=== PATIENT | female | born 1970 | race African-American/Black ===

== ENCOUNTER 2019-08-12 20:44 | Inpatient (IN) | payer OTHER ==
[~2019-08-12] VITALS: Ht 165.1 cm; Wt 116.6 kg
[2019-08-12 20:59] VITALS: BP 139/87
[2019-08-12] MEDS ORDERED: LISINOPRIL2.5 MG PO ×2 (21:09)
[2019-08-12] MEDS ORDERED: METFORMIN HCL500 M3 PO (21:10)
[2019-08-12 22:05] LABS: ABSOLUTE NEUTROPHILS 5.6 thou/uL (1.4-8.2); BASOPHILS 0.2 % (0.0-2.0); HEMOGLOBIN 15.9 gm/dL (12.0-15.0); LYMPHOCYTES 18.3 % (24.0-44.0); MCH 28.8 pg (26.0-34.0); MCHC 33.7 g/dL (28.0-37.0); MCV 85.3 fL (80.0-100.0); MONOCYTES 11.6 % (1.0-8.0); PLATELET COUNT 211 thou/uL (150-400); POLYS 69.9 % (36.0-66.0); RBC 5.51 mil/uL (4.20-5.00); RDW 13.7 % (10.5-14.5)
[2019-08-12 22:12] LABS: BE(vivo) 3.1 mmol/L (-2 to +3); HCO3 25.8 mmol/L (22.0-26.0); PCO2 34.2 mmHg (35.0-45.0); pH 7.496 (7.360-7.450); sO2 86.9 % (92.0-98.0)
[2019-08-12 22:13] LABS: PO2 47.2 mmHg (80.0-100.0)
[2019-08-12 22:19] LABS: CALCIUM 8.2 mg/dL (8.5-10.1); POTASSIUM 4.1 mmol/L (3.5-5.1)
[2019-08-12 22:32] LABS: ALBUMIN 2.8 g/dL (3.4-5.0); DIRECT BILIRUBIN 0.5 mg/dL (<0.1-0.2); TOTAL BILIRUBIN 1.6 mg/dL (<0.1-1.0); TOTAL PROTEIN 7.8 g/dL (6.4-8.2)
[2019-08-12 23:15] LABS: BE(vivo) 3.4 mmol/L (-2 to +3); PO2 VENOUS 32.9 mmHg (35.0-45.0)
[2019-08-12 23:41] VITALS: BP 125/94
[2019-08-13] VITALS (7 sets, daily range): BP systolic 116–128; BP diastolic 70–84
--- NOTE | 2019-08-13 01:15 | NUR ---
Pt. arrived to the unit from the emergency room accompanied by staff. She is alert and oriented. She offers no c/o shortness of air. On 02 at 8 liters per nasal canula. Pt. does not like the oxygen in her nose and keeps pulling it away from her nose. Pt. educated on the importance of the oxygen. She is up with stand by assistance. Admission assessment and history is completed.
[2019-08-13 06:44] LABS: CHOLESTEROL 58 mg/dL (<200); HDL CHOLESTEROL 18 mg/dL (>40); LDL CHOLESTEROL 18 mg/dL (<100); TC:HDL 3.2 Ratio (Not establshd); TRIGLYCERIDE 113 mg/dL (<150); VLDL 23 mg/dL (<40)
[2019-08-13 06:48] LABS: SERUM ASSESSMENT Clear
--- NOTE | 2019-08-13 08:42 | NUR ---
ASSESSMENT: CM REVIEWED CHART AND SPOKE WITH ATTENDING WELL PATIENT. PT REPORTS SHE LIVES IN A HOUSE WITH HER MOTHER. SHE STATES ONE STEP TO ENTER AND 15 STEPS WITH HANDRAILS TO HER BEDROOM. PT REPORTS SHE IS FULLY INDEPENDENT WITH ADLS AND AMBULATION. PT DENIES HAVING ANY DME. PT DOES NOT HAVE A CPAP NOR OXYGEN AT HOME AND IS CURRENTLY ON 8L OXYGEN HERE. PT REPORTS NO HX OF HH OR POST ACUTE CARE. PT REPORTS NO RECENT TRAVEL. PT IS CURRENTLY IN ISOLATION AND BEING TESTED FOR COVID 19 WHICH IS STILL PENDING AT THIS TIME. PER REPORT PT HAS A FAMILY MEMBER THAT RECENTLY TESTED POSITIVE FOR COVID. CM WILL CONTINUE TO FOLLOW TO ASSIST NEEDED.
--- NOTE | 2019-08-13 10:08 | NUR ---
PATIENT STATED TO NURSE THIS AM THAT SHE DOES NOT LIKE PUTTING ON OXYGEN VIA NC. STATES IT IS TOO INCOVINIENT. EDUCATED ON NEED TO KEEP OXYGEN LEVEL ABOVE 90%. SHE HAS BEEN NOTED TO TAKE OFF HER OXYGEN AND OXYGEN LEVEL HAVE DROPPED BELOW 85%. ROXY ALSO REFUSED ACCU CHECK STATING SHE [place] O[facility]. EDUCATED ON NEED TO LET NURSE DO ACCUCHECK. WILL CONT WITH PLAN OF CARE.
--- NOTE | 2019-08-13 10:35 | NUR ---
Assess due to high BMI 45.7. Admit with fever, acute respiratory failure, and pending COVID 19 results. Brother has tested positive. Unable to interview pt, EMR reviewed. Hx diabetes, HTN. HDL are very low 18, glucose 230 and A1C is pending. Has started on carb controlled diet order. Unsure of recent intake trends or changes in weight. Low nutrition risk at this time, continue to follow up per protocol.
--- NOTE | 2019-08-13 21:15 | NUR ---
pt transported to [facility] beds at the [facility]. pt had all of their belongings taken to icu with them.
[2019-08-14] VITALS (21 sets, daily range): BP systolic 110–138; BP diastolic 71–95
[2019-08-14 05:17] LABS: ALBUMIN 2.3 g/dL (3.4-5.0); CALCIUM 8.2 mg/dL (8.5-10.1); CREATININE 0.8 mg/dL (0.6-1.0); POTASSIUM 4.1 mmol/L (3.5-5.1); TOTAL PROTEIN 6.8 g/dL (6.4-8.2)
[2019-08-14 05:49] LABS: HEMATOCRIT 41.9 % (37.0-47.0); MCH 28.6 pg (26.0-34.0); MCV 86.7 fL (80.0-100.0); RBC 4.83 mil/uL (4.20-5.00); RDW 13.6 % (10.5-14.5); WBC 7.3 thou/uL (4.0-11.0)
[2019-08-14 06:10] LABS: HEMOGLOBIN 13.8 gm/dL (12.0-15.0)
--- NOTE | 2019-08-14 06:50 | NUR ---
[facility] WAS UNABLE TO SEE PT UNTIL APPROX 2140 DUE TO INITIAL ABSCENCE OF N95 MASK. ASSESSMENTS AND MEDS GIVEN ARE DOCUMENTED. PT RESTED WELL FOR MOST OF THE NOC. RR RANGED FROM 26-30S BUT MOSTLY STAYED IN THE HIGH 20s FOR MOST OF THE NOC. PT HAD A FEVER OF 100.3 AROUND 0123AM, FEVER BROKE BY ITSLEF, TEMP NOW 35.8. PT IS STABLE. PT HAD AN UNEVENTFUL NOC. PT IS SLOWLY PROGRESSING TOWARDS POC GOALS.
--- NOTE | 2019-08-14 07:56 | EKG ---
[facility] [place] [address] ELECTROCARDIOGRAM REPORT Name: TOM PITTS Room #: 237-P ADM IN M.R.#: [id number] Admission: 08/12/19 Attend Phys: Kory Larios MD Discharge: Date of : 70 Report #: [id number] THIS REPORT FOR: cc: SANA - Bobbi family physician/PCP SANA - Bobbi family physician/PCP Daquan Pantoja MD [facility] THIS REPORT FOR: //name// [facility] ED Test Date: 2019-08-12 Test Time: 21:45:43 Pat Name: TOM PITTS Department: Room: [facility] Gender: F Dance Master: GRAY : 1970 Requested By: Aaron De La Cruz Order Number: [id number] MD: Daquan Pantoja Measurements Intervals [place] Rate: 106 P: 38 TN: 142 QRS: 3 QRSD: 104 T: 25 QT: 353 QTc: 469 Interpretive Statements Sinus tachycardia Otherwise normal tracing No previous ECG available for comparison Electronically Signed On 08-14-2019 7:54:55 CDT by Daquan Pantoja [email or web address] <ELECTRONICALLY SIGNED> By: Daquan Pantoja MD, FAC 08/14/19 0754 [id number] Daquan Pantoja MD, [facility] /EPI
--- NOTE | 2019-08-14 12:16 | NUR ---
ON-GOING ASSESSMENT: CM REVIEWED CHART AND SPOKE WITH ATTENDING. PT REMAINS IN ISOLATION DUE TO POSITIVE COVID 19. PT IS CURRENTLY ON THE BIPAP AND IF SHE DOES NOT IMPROVE MAY NEED POSSIBLE INTUBATION. PT REMAINS ON IV ANBX. CM WILL CONTINUE TO FOLLOW TO ASSIST NEEDED.
[2019-08-14 15:15] LABS: D-DIMER 1.4 ug/mLFEU (0.19-0.50); FIBRINOGEN 523.9 mg/dL (210-360); INR 1.1; PROTIME 10.9 Seconds (9.3-11.4)
--- NOTE | 2019-08-14 16:30 | NUR ---
Estrada catheter placed with immediate return of geraldine urine. Sinus rhythm. Remains on BIPAP. Continue to monitor pulmonary status and reserve. May need intubation if increasing fatigue and work of breathing.
--- NOTE | 2019-08-14 19:00 | NUR ---
Report given to oncoming RN. Continues support with CPAP. Maintaining adequate O2 sat. Status report given to pt's daughter cayetano today. Continue to work toward pt goals.
[2019-08-14 19:57] LABS: URINE BILIRUBIN NEGATIVE (Negative); URINE BLOOD TRACE (Negative); URINE CLARITY CLEAR; URINE COLOR AMBER; URINE GLUCOSE-RANDOM* TRACE (Negative); URINE KETONES NEGATIVE (Negative); URINE LEUKOCYTES-REFLEX NEGATIVE (Negative); URINE NITRITE-REFLEX NEGATIVE (Negative); URINE PROTEIN (DIPSTICK) 2+ (Negative); URINE SPECIFIC GRAVITY 1.015 (1.005-1.035); URINE UROBILINOGEN >= 8.0 E.U./dl (0.2-1.0)
[2019-08-14 20:07] LABS: SQUAMOUS 0-3 Few /LPF (0-3)
[2019-08-14 20:08] LABS: BACTERIA-REFLEX 1-9 Few /HPF (None Seen); CASTS None Seen /LPF (None Seen); CRYSTALS None Seen /LPF (None Seen); MUCUS 4-6 Moderate strn/LPF (None Seen); URINE RBC 0-2 Rare /HPF (0-2); URINE WBC-REFLEX 0-5 Rare /HPF (0-5)
--- NOTE | 2019-08-14 21:24 | NUR ---
PATIENT RESTING IN NO ACUTE DISTRESS.REMAINS A/OX4.VSS.ON BIPAP PER ORDERS.DR TUBBS,INFECTIOUS DOCTOR CALLED REGARDING PLAN OF CARE TO INTIATE PATIENT ON CONVALESCENT PLASMA THERAPY.PATIENT INFORMED OF THE POC,EDUCATED ON THE RATIONALE OF THE THERAPY AND INFORMED THAT IT IS NOT A CURE BUT AID IN HELPING PATIENT TO FIGHT THE VIRUS.PATIENT IN AGREEMENT TO PARTICIPATE,DR TUBBS WAS NOTIFIED OF THE PATIENT DECISION TO PROCEED WITH THE THERAPY.NO CONCERNS VOICED BY THE PATIENT.
[2019-08-15] VITALS (43 sets, daily range): BP systolic 113–144; BP diastolic 68–91
[2019-08-15 01:07] LABS: HIV ANTIBODY Non Reactive (Non Reactive)
[2019-08-15 02:07] LABS: HEP B SURFACE Ab(ANTI-HBS Non Reactive (()); HEPATITIS B SURFACE AG Negative (Negative); HEPATITIS C VIRUS AB <0.1 (0.0-0.9)
[2019-08-15 05:25] LABS: ABSOLUTE NEUTROPHILS 4.7 thou/uL (1.4-8.2); BASOPHILS 0.4 % (0.0-2.0); HEMATOCRIT 40.4 % (37.0-47.0); HEMOGLOBIN 13.2 gm/dL (12.0-15.0); LYMPHOCYTES 22.9 % (24.0-44.0); MCH 28.4 pg (26.0-34.0); MCHC 32.6 g/dL (28.0-37.0); MCV 87.2 fL (80.0-100.0); MONOCYTES 7.9 % (1.0-8.0); PLATELET COUNT 244 thou/uL (150-400); POLYS 67.8 % (36.0-66.0); RBC 4.63 mil/uL (4.20-5.00); RDW 14.1 % (10.5-14.5); WBC 6.9 thou/uL (4.0-11.0)
[2019-08-15 05:51] LABS: FIBRINOGEN 523.9 mg/dL (210-360); INR 1.1; PROTIME 10.9 Seconds (9.3-11.4)
[2019-08-15 06:03] LABS: ALBUMIN 2.1 g/dL (3.4-5.0); CREATININE 0.8 mg/dL (0.6-1.0); TOTAL BILIRUBIN 1.3 mg/dL (<0.1-1.0); TOTAL PROTEIN 6.6 g/dL (6.4-8.2)
--- NOTE | 2019-08-15 06:25 | NUR ---
ASSESSMENT DOCUMENTED.PT BEEN RESTING IN NO ACUTE DISTRESS.REMAINS ON BIPAP.A/OX4.ASSIST WITH BED TURNING AND REPOSITIONING.[place] NOTED.PT HAVING LOOSE COUGH WITH PHELGM,USES TISSUES TO CLEAR.DESAT TO 70S W/O BIPAP ON QUICKLY BUT THEN RECOVER FASTER ON BIPAP.PEDRO LUIS SOLOMON.ADEQUATE UO.UPDATED ON THE PLAN OF CONVASCELENT PLASMA THERAPY TODAY,STILL INAGREEMENT.PT DENIES PAIN OR ANY DISTRESS AT THIS TIME.WILL CONT TO MONITOR PER POC.
--- NOTE | 2019-08-15 08:45 | EKG ---
[facility] [place] [address] ELECTROCARDIOGRAM REPORT Name: TOM PITTS Room #: 237- ADM IN M.R.#: [id number] Admission: 08/12/19 Attend Phys: Kory Larios MD Discharge: Date of : 70 Report #: [id number] THIS REPORT FOR: cc: SANA - Bobbi family physician/PCP SANA - No family physician/PCP Daquan Pantoja MD [facility] THIS REPORT FOR: //name// [facility] Test Date: 2019-08-15 Test Time: 07:27:33 Pat Name: TOM PITTS Department: Room: [facility] Gender: F Mixer Operator: ERON : 1970 Requested By: Kory Larios Order Number: [id number] MD: Daquan Pantoja Measurements Intervals [place] Rate: 83 P: 36 TX: 161 QRS: -2 QRSD: 106 T: 21 QT: 412 QTc: 485 Interpretive Statements Sinus rhythm Normal tracing Compared to ECG 08/12/2019 21:45:43 Sinus tachycardia no longer present Electronically Signed On 08-15-2019 8:43:36 CDT by Daquan Pantoja [email or web address] <ELECTRONICALLY SIGNED> By: Daquan Pantoja MD, FAC 08/15/19 0843 0727 6 Daquan Pantoja MD, [facility] /EPI
--- NOTE | 2019-08-15 15:33 | NUR ---
SW reviewed chart and spoke with attending physician. Pt remains on bipap and may start plasma transfusion. No weekend discharge planned. ANA is following to assist as needed with discharge planning.
--- NOTE | 2019-08-15 19:24 | NUR ---
CONTINUES ON BIPAP AT .60 O2. CONVALESANT PLAMA INFUSION RECIEVED. NO COMPLAINTS OF PAIN. VSS.
[2019-08-16] VITALS (87 sets, daily range): BP systolic 113–211; BP diastolic 69–118
--- NOTE | 2019-08-16 04:04 | NUR ---
PT HAD A DECENT UNEVENTFUL NOC. PT IS STABLE. SATS IN THE LOW 90s. SLOWLY PROGRESSING TOWARDS POC.
[2019-08-16 06:32] LABS: ABSOLUTE NEUTROPHILS 5.3 thou/uL (1.4-8.2); BASOPHILS 0.1 % (0.0-2.0); EOSINOPHILS 1.6 % (0.0-3.0); HEMATOCRIT 38.6 % (37.0-47.0); HEMOGLOBIN 12.9 gm/dL (12.0-15.0); LYMPHOCYTES 16.5 % (24.0-44.0); MCH 28.5 pg (26.0-34.0); MCHC 33.4 g/dL (28.0-37.0); MCV 85.4 fL (80.0-100.0); PLATELET COUNT 279 thou/uL (150-400); POLYS 71.8 % (36.0-66.0); RBC 4.51 mil/uL (4.20-5.00); RDW 13.7 % (10.5-14.5); WBC 7.3 thou/uL (4.0-11.0)
[2019-08-16 06:44] LABS: INR 1.1; PROTIME 11.4 Seconds (9.3-11.4)
[2019-08-16 06:49] LABS: FIBRINOGEN 580.5 mg/dL (210-360)
[2019-08-16 07:06] LABS: ALBUMIN 2.2 g/dL (3.4-5.0); CALCIUM 8.2 mg/dL (8.5-10.1); CREATININE 0.7 mg/dL (0.6-1.0); POTASSIUM 3.8 mmol/L (3.5-5.1); TOTAL PROTEIN 6.8 g/dL (6.4-8.2)
[2019-08-16 07:10] LABS: TOTAL BILIRUBIN 1.2 mg/dL (<0.1-1.0)
--- NOTE | 2019-08-16 15:28 | NUR ---
ASSUMED CARE OF PT AT SHIFT CHANGE, PT A&OX4, NORMALLY UP AD FORREST, HIGH RESPIRATION RATE, ON BIPAP W/RT CARES. SEE SEPARATE INTERVENTIONS FOR ASSESSMENTS. B/P RAISES WHEN SITTING AT THE SIDE OF THE BED, HAD QUESTIONS ABOUT BIPAP AND WHAT IT DOES FOR HER, WANTS TO GET UP AND WALK AROUND, STATES SHE IS VERY INDEPENDENT NORMALLY AND WANTS TO KNOW WHAT SHE CAN DO TO GET BETTER. RT ANSWERED SOME OF HER QUESTIONS. PRINTED INFO SHEETS WELL. REFUSED LUNCH BG STATED SHE ISN'T EATING; EXPLANATION GIVEN HOW BGS CAN RAISE WITH ILLNESS. ENCOURAGED HER TO CALL FOR ANY NEEDS AND SHE DOES
--- NOTE | 2019-08-16 18:25 | NUR ---
PT WANTED TO EAT, PHYSICIAN OKAYED, THEN DISCOVERED ALTHOUGH PT IS ALLOWED SIPS OF LIQUIDS/MEDS, SHE CANNOT HAVE A FULL LIQUID DIET. CANCELLED. THEY BROUGHT DINNER. TRIED TO CANCEL AND IT STATES UNABLE TO DO SO. CALLED DIETARY. PT SPENT MOST OF THE DAY AWAKE, ABOUT TWO HOURS UP SITTING AT THE SIDE OF THE BED, THEN FROM ABOUT 1645 ON SHE HAS NAPPED. FAMILY CALLED REPEATEDLY TO CHECK ON HER. WILL GIVE REPORT TO KEYBOARD INSTRUMENT REPAIRER.
[2019-08-17] VITALS (28 sets, daily range): BP systolic 120–191; BP diastolic 72–102
[2019-08-17 04:10] LABS: HEMATOCRIT 39.3 % (37.0-47.0); HEMOGLOBIN 13.2 gm/dL (12.0-15.0); MCH 28.7 pg (26.0-34.0); MCHC 33.5 g/dL (28.0-37.0); MCV 85.7 fL (80.0-100.0); RBC 4.58 mil/uL (4.20-5.00); RDW 13.5 % (10.5-14.5)
[2019-08-17 04:13] LABS: CALCIUM 8.3 mg/dL (8.5-10.1); CREATININE 0.7 mg/dL (0.6-1.0); POTASSIUM 3.9 mmol/L (3.5-5.1)
--- NOTE | 2019-08-17 06:34 | NUR ---
Pt tolerating bipap at 16/8, 60%; O2 sat remains >90, but pt is still tachypnic with respirations 30-40. frequent productive cough, thick yellow sputum. Pt seems less anxious this morning than she did at beginning of shift. Remains NPO except for sips of clear liquids with meds.
--- NOTE | 2019-08-17 12:29 | NUR ---
CONSULTED TO PLACE A PICC FOR A PATIENT NEEDING ADDITIONAL ACCESS. COVID +. ORDER AND CONSENT NOTED. THE PROCEDURE WELL BENIFITS AND RISKS DISCUSSED WITH THE PATIENT AND SHE VERBALIZED UNDERSTANDING. THE RIGHT UPPER ARM CEPHALIC WAS WIDLEY PATENT A #5F TRIPLE LUMEN POWER PICC WAS PLACED AFTER A BEDSIDE TIMEOUT WAS COMPLETED. LINE WAS TRIMMED TO 46CM AND ADVANCED WITH 4CM EXTERNAL. A STAT CHEST XRAY CONFIRMED LINE IN PROPER POSITION AND RELEASED FOR USE
--- NOTE | 2019-08-17 18:41 | NUR ---
SPOKE WITH PT'S DAUGHTER JENY ON THE PHONE AND GAVE HER AN UPDATE ON PT.
--- NOTE | 2019-08-17 18:41 | NUR ---
PT DANGLED ON SIDE OF BED FOR 30 MINUTES WITH RN AT BEDSIDE WITH PT. PT KEEP BIPAP ON MOST OF TIME HOWEVER REMOVED IT TO BLOW HER NOSE AND TAKE A SIP OF WATER WITH HER MEDICINE. PT BECAME VERY SOB ONCE MASK WAS REMOVED. PT AGREED TO PLACE MASK BACK ON FACE. PT HELPED BACK INTO BED AND RECOVERED TO A PULSE OX OF 94% ON BIPAP.
[2019-08-18] VITALS (28 sets, daily range): BP systolic 128–179; BP diastolic 80–100
[2019-08-18 05:10] LABS: HEMOGLOBIN 12.8 gm/dL (12.0-15.0); MCH 28.3 pg (26.0-34.0); MCHC 32.9 g/dL (28.0-37.0); MCV 86.1 fL (80.0-100.0); RBC 4.52 mil/uL (4.20-5.00); RDW 13.5 % (10.5-14.5)
[2019-08-18 05:21] LABS: CALCIUM 8.3 mg/dL (8.5-10.1); CREATININE 0.7 mg/dL (0.6-1.0); POTASSIUM 3.5 mmol/L (3.5-5.1)
--- NOTE | 2019-08-18 06:00 | NUR ---
PT AWAKE AND ALERT REMAINS ON BIPAP. INCREASED TO 85% FIO2 LUNGS DIMINISHED. 1200 CC UO THIS SHIFT. CONT TO REFUSE TO BE TURNED ORAL CARE OR BE0 BATHED. ISOLATION FOR COVIB 19. WILL CONT TO MONITOR
[2019-08-18 09:09] LABS: BE(vivo) 0.1 mmol/L (-2 to +3); PCO2 36.5 mmHg (35.0-45.0); PO2 76.1 mmHg (80.0-100.0); pH 7.435 (7.360-7.450); sO2 95.7 % (92.0-98.0)
--- NOTE | 2019-08-18 09:30 | NUR ---
COVID 19+, tranferred to ICU.
--- NOTE | 2019-08-18 11:23 | NUR ---
PT REFUSING LOVENOX AND TURNS. SPOKE WITH AUTHORIZED CONTACT WHO CLAIMS TO BE AN ANESTHESIOLOGIST; UPDATED AND ANSWERED ALL QUESTIONS. SHE WOULD LIKE TO SPEAK WITH THE A PHYSICIAN TO DISCUSS THE PT'S CASE.
[2019-08-19] VITALS (45 sets, daily range): BP systolic 134–234; BP diastolic 78–141
[2019-08-19 05:38] LABS: INR 1.1; PROTIME 11.7 Seconds (9.3-11.4)
[2019-08-19 05:43] LABS: ABSOLUTE NEUTROPHILS 4.9 thou/uL (1.4-8.2); BASOPHILS 0.2 % (0.0-2.0); FIBRINOGEN 650.6 mg/dL (210-360); HEMATOCRIT 39.1 % (37.0-47.0); HEMOGLOBIN 13.2 gm/dL (12.0-15.0); LYMPHOCYTES 13.6 % (24.0-44.0); MCH 28.9 pg (26.0-34.0); MCHC 33.7 g/dL (28.0-37.0); MCV 85.8 fL (80.0-100.0); MONOCYTES 2.9 % (1.0-8.0); PLATELET COUNT 387 thou/uL (150-400); POLYS 83.3 % (36.0-66.0); RBC 4.56 mil/uL (4.20-5.00); RDW 13.4 % (10.5-14.5); WBC 5.9 thou/uL (4.0-11.0)
[2019-08-19 06:04] LABS: ALBUMIN 2.1 g/dL (3.4-5.0); CALCIUM 8.8 mg/dL (8.5-10.1); CREATININE 0.7 mg/dL (0.6-1.0); POTASSIUM 4.3 mmol/L (3.5-5.1); TOTAL BILIRUBIN 0.6 mg/dL (<0.1-1.0); TOTAL PROTEIN 7.3 g/dL (6.4-8.2)
--- NOTE | 2019-08-19 06:44 | NUR ---
PT A&O X4 ABLE TO MAKE NEEDS KNOWN. DENIES PAIN. PT HAS BEEN COOPERATIVE WITH CARE OVERNIGHT. CONTINUES ON BIPAP DESATS OCCASIONAL DESATS TO UPPER 80s. PPN @40CC/HR. ACCU CHECKS Q6H BS ELEVATED. PT HAS A CLOUD DRAINS W/O DIFFICULTIES. STATED SHE REPOSITIONS HERSELF SLIDES DOWN THE BED OFFERED TO BE PULLED UP OVERNIGHT BUT SHE DECLINED.
--- NOTE | 2019-08-19 09:00 | NUR ---
DR ORTIZ AND MYSELF WERE IN ROOM THIS MORNING AND HE ASKED PATIENT TO CLARIFY CODE STATUS...SHE HAD DECLINED INTUBATION THE PREVIOUS DAY BUT STATED SHE WOULD NOW CONSENT TO INTUBATION IF NEEDED FOR A SHORT TERM SOLUTION TO EASE HER BREATHING..
--- NOTE | 2019-08-19 10:48 | NUR ---
PATIENT EXPRESSED HER WISHES THAT SHE WILL ALLOW INTUBATION IF IT IS FOR A SHORT PERIOD OF TIME WITH DR ORTIZ PRESENT. WILL MONITOR..
--- NOTE | 2019-08-19 14:30 | NUR ---
PT STATES SHE IS READY TO BE INTUBATED NOW...SHE DOES NOT HAVE LABORED BREATHING...HER RESP RATE IS AROUND 24...SHE APPEARS COMFORTABLE...DR CARPENTER WAS NOTIFIED AND LONG SHE IS STABLE THE PLANS IS TO INTUBATE HER TOMORROW...IF HER STATUS CHANGES SHE MAY BE INTUBATED TONIGHT...WILL MONITOR
--- NOTE | 2019-08-19 15:58 | NUR ---
SW reviewed chart and spoke with nursing and attending physician. Pt remains on bipap and has agreed to be intubated if needed. SW is following to assist as needed with discharge planning.
[2019-08-20] VITALS (19 sets, daily range): BP systolic 97–158; BP diastolic 52–98
--- NOTE | 2019-08-20 07:39 | NUR ---
Assessment and intervention document. Pt able to make need known. Pt complains of hunger would like to eat. Saturating in upper 90 on Bipap. No labor breathing respiration in the 20s. Patient does not tolerate removal of Bipap. All other vitals are WNL. Patient is stable but is not progressing toward goals. Will continue to monitor.
[2019-08-20 07:45] LABS: BE(vivo) 0.7 mmol/L (-2 to +3); HCO3 24.8 mmol/L (22.0-26.0); PCO2 38.1 mmHg (35.0-45.0); PO2 73.5 mmHg (80.0-100.0); pH 7.431 (7.360-7.450); sO2 95.2 % (92.0-98.0)
[2019-08-20 11:09] LABS: BE(vivo) -2.8 mmol/L (-2 to +3); HCO3 23.5 mmol/L (22.0-26.0); PCO2 46.5 mmHg (35.0-45.0); PO2 120.1 mmHg (80.0-100.0); pH 7.322 (7.360-7.450); sO2 98.1 % (92.0-98.0)
--- NOTE | 2019-08-20 16:36 | NUR ---
PATIENT WAS INTUBATED THIS AM BY HER CONSENT. PROPOFOL AND OTHER SEDATIVES INITIATED. SHE WAS AWAKE FOR THE FIRST COUPLE OF HOURS BUT IS NOW SLEEPING. SHE DOES OCCASIONALLY WAKE UP AND ATTEPT TO MOVE HER HANDS. RESTRAINTS IN PLACE. ORAL CARE PROVIDED. LOW SUCTION APPLIED TO OG TUBE. WILL CONT WITH PLAN OF CARE.
--- NOTE | 2019-08-20 19:17 | NUR ---
1000: SPOKE WITH DTR, ESSENCE. INFORMED OF INTUBATION, MEDS AND RESTRAINTS.
[2019-08-21] VITALS (25 sets, daily range): BP systolic 105–181; BP diastolic 53–104
--- NOTE | 2019-08-21 03:12 | NUR ---
COVID PT SEDATION VACATION AT 7; LASTED 4MINS. PT WITHDRAWS R HAND TO PAIN; UNABLE TO FOLLOW COMMANDS, +VE COUGH AND GAG REFLEX. PT ON PROPOFOL, VERSED, & DILAUDID. PT'S SSI WAS CHANGED TO MODERATE DOSE PER PRT. BATH GIVEN THIS SHIFT. PT IS STABLE. RESTING WELL. U/O>40ML/HR. FIO2 TITRATED DOWN TO 95% AT THIS TIME, PT IS SLOWLY PROGRESSING TOWARDS POC GOALS.
[2019-08-21 06:08] LABS: ABSOLUTE NEUTROPHILS 6.9 thou/uL (1.4-8.2); BASOPHILS 1.1 % (0.0-2.0); HEMOGLOBIN 12.8 gm/dL (12.0-15.0); LYMPHOCYTES 11.2 % (24.0-44.0); MCH 28.4 pg (26.0-34.0); MCHC 32.8 g/dL (28.0-37.0); MCV 86.5 fL (80.0-100.0); MONOCYTES 7.3 % (1.0-8.0); PLATELET COUNT 389 thou/uL (150-400); POLYS 80.4 % (36.0-66.0); RBC 4.51 mil/uL (4.20-5.00); RDW 13.6 % (10.5-14.5); WBC 8.5 thou/uL (4.0-11.0)
[2019-08-21 06:23] LABS: ALBUMIN 2.3 g/dL (3.4-5.0); CALCIUM 8.7 mg/dL (8.5-10.1); CREATININE 0.7 mg/dL (0.6-1.0); POTASSIUM 4.3 mmol/L (3.5-5.1); TOTAL BILIRUBIN 0.7 mg/dL (<0.1-1.0)
[2019-08-21 07:02] LABS: FIBRINOGEN 434.1 mg/dL (210-360); INR 1.1; PROTIME 11.4 Seconds (9.3-11.4)
--- NOTE | 2019-08-21 08:50 | NUR ---
Recommend discontinue PPN. Start enteral nutrition of Vital AF 1.2 at goal 30ml/hr while on high dose of propofol. Rec water flush of 240 ml every 6hr and add 1 packet beneprotein in each water flush.
--- NOTE | 2019-08-21 09:48 | NUR ---
ASSUMED CARE AT 0700, ASSESSMENT AND VITAL SIGNS COMPLETED PER ICU PROTOCOL. DR. CARPENTER ROUNDED THIS AM, NEW ORDERS AND PLAN OF CARE DISCUSSED. DR. ORTIZ ROUNDED THIS AM, NEW ORDERS RECEIVED.
--- NOTE | 2019-08-21 12:31 | NUR ---
SW reviewed chart and spoke with attending physician. Pt remains in Enhanced Isolation. Pt remains intubated at this time. SW spoke with pt's dtr, Esseynce to provide update and provide support. Pt is slowly progressing with goals of extubating and starting therapy services when pt is able to participate. SW is following to assist as needed with discharge planning.
[2019-08-22] VITALS (19 sets, daily range): BP systolic 104–169; BP diastolic 58–94
[2019-08-22 03:04] LABS: HEMOGLOBIN 11.8 gm/dL (12.0-15.0); MCH 28.2 pg (26.0-34.0); MCHC 32.7 g/dL (28.0-37.0); MCV 86.3 fL (80.0-100.0); RBC 4.17 mil/uL (4.20-5.00); RDW 13.5 % (10.5-14.5); WBC 8.1 thou/uL (4.0-11.0)
[2019-08-22 03:51] LABS: CALCIUM 7.3 mg/dL (8.5-10.1); CREATININE 0.6 mg/dL (0.6-1.0); POTASSIUM 3.6 mmol/L (3.5-5.1)
[2019-08-22 04:50] LABS: BE(vivo) -1.6 mmol/L (-2 to +3); HCO3 22.7 mmol/L (22.0-26.0); PCO2 36.9 mmHg (35.0-45.0); PO2 99.4 mmHg (80.0-100.0); pH 7.407 (7.360-7.450); sO2 97.6 % (92.0-98.0)
--- NOTE | 2019-08-22 09:00 | NUR ---
Assumed care at 0700. Sedation vacation performed at 0833 and ended at 0850. PT raised her eyebrows to voice but did not follow commands. She remained calm during the sedation vacation and vital signs remained stable. PT was placed back on propofol gtt however it was titrated down to 30 mcs/kg/hr. Dilaudid gtt was titrated to 1 ml/h. The versed was resumed at 1 mg/h. High fall risk precautions are in place. RN will continue to monitor.
--- NOTE | 2019-08-22 14:00 | NUR ---
Spoke with PT's daughter and provided her with a PT update. Daughter asked if she could send balloons to her mother. RN asked the Darian RN extension service supervisor who stated that would most likely not be okay considering the infection potential, but to ask Kecia Pruitt for clarification. RN attempted to call Aurelia Pruitt but was unable to reach her. RN told the daughter that the balloons would not be advised but a card would be okay to send. PT verbalized understanding and stated she plans on bringing the card on Sunday, August 23 to the emergency entrance. RN verbalized understanding and reminded daughter to please call staff on Sunday ahead of time so they know when to expect her arrival. RN will continue to monitor.
--- NOTE | 2019-08-22 14:51 | NUR ---
SW reviewed chart and spoke with attending physician. Pt remains on the ventilator and in Enhanced Isolation. Pt COVID-19 positive. Tube feeding to be started. No weekend discharge planned. SW is following to assist as needed with discharge planning.
--- NOTE | 2019-08-22 16:41 | NUR ---
PT was placed in the prone position at 1630 per provider's orders. PT appeared to tolerate the turn well. High fall risk precautions are in place. RN will continue to monitor.
[2019-08-23] VITALS (18 sets, daily range): BP systolic 101–131; BP diastolic 60–86
[2019-08-23 05:12] LABS: HCO3 25.8 mmol/L (22.0-26.0); PCO2 37.5 mmHg (35.0-45.0); pH 7.456 (7.360-7.450); sO2 96.4 % (92.0-98.0)
[2019-08-23 05:27] LABS: ABSOLUTE NEUTROPHILS 5.3 thou/uL (1.4-8.2); EOSINOPHILS 0.1 % (0.0-3.0); HEMATOCRIT 37.2 % (37.0-47.0); HEMOGLOBIN 12.3 gm/dL (12.0-15.0); LYMPHOCYTES 28.3 % (24.0-44.0); MCH 28.5 pg (26.0-34.0); MCHC 33.1 g/dL (28.0-37.0); MONOCYTES 9.3 % (1.0-8.0); PLATELET COUNT 333 thou/uL (150-400); POLYS 61.3 % (36.0-66.0); RBC 4.32 mil/uL (4.20-5.00); RDW 13.7 % (10.5-14.5); WBC 8.6 thou/uL (4.0-11.0)
[2019-08-23 05:45] LABS: ALBUMIN 2.3 g/dL (3.4-5.0); CALCIUM 8.1 mg/dL (8.5-10.1); CREATININE 0.5 mg/dL (0.6-1.0); POTASSIUM 3.7 mmol/L (3.5-5.1); TOTAL BILIRUBIN 0.5 mg/dL (<0.1-1.0); TOTAL PROTEIN 6.2 g/dL (6.4-8.2)
--- NOTE | 2019-08-23 07:15 | NUR ---
PT ON A VERSED DRIP, KEYONA RODGERS (CEMENTER HELPER) TELLS ME THAT SHE JUST HUNG A VERSED DRIP AND THE DRIP WAS ALREADY AT THE BEDSIDE AT THE START OF HER SHIFT. I ASKED FOR THE BLUE SHEET, THIS WAS NOT FOUND ANYWHERE IN THE DRAWS OR THE CHART OF THE PT. I CALLED PHARMACY TO ASK WHAT TIME THIS VERSED GTT WAS ISSUED, JOSH PHARM D TOLD ME THAT IT WAS MADE 08/21/19, TWO DAYS AGO. I ASKED FOR ANOTHER VERSED BAG SINCE THIS BAG WAS ALREADY BASED ON THE 24 HOUR EXPIRATION DATES ON THESE DRIPS, I ALSO ASKED FOR ANOTHER BLUE SHEET SINCE WE COULDNT FIND THE BLUE SHEET FOR THE BAG. A NEW BAG WAS SENT WITH ITS BLUE SHEET AND A PLAIN UNCOMPLETED BLUE SHEET WAS SENT FOR THE BAG. JOSH PHARM-D AWARE ABOUT THIS INCIDENT, NOTHING REQUIRED OF ME AT THIS TIME.
--- NOTE | 2019-08-23 08:01 | NUR ---
ASSESSMENTS CHARTED, MEDS CHARTED GIVEN. PATIENT WAS IN PRONE POSITION AT START OF SHIFT. WAS TURNED AT 0300 WHEN STAFF WAS AVAILABLE TO TURN HER SAFELY WITHOUT EXTUBATING HER. TUBE FEED WAS STARTED AGAIN. Q6 ACCU CHECKS COVERED CHARTED. BED BATH WAS GIVEN . PATIENT IS CURRENTLY IN SOFT WRIST RESTRAINTS TO PREVENT EXTUBATION. PATIENT WAS LIGHTLY SADATED DURING SHIFT. FALL PRECAUTIONS IN PLACE DURING SHIFT.
--- NOTE | 2019-08-23 12:54 | NUR ---
ASSUMED CARE @ 0700 08/23/19, PT ASSESSMENTS AND VSS COMPLETE PER ICU PROTOCOL. SEDATION VACATION @3117-1707, PT ABLE TO FOLLOW SIMPLE COMMANDS, R HAND WEAKER THAN L HAND BUT BOTH WEAK, EQUAL STRENGTH BLE. PROPOFOL, VERSED AND HYDROMORPHONE GTT FOR VENT MANAGEMENT. PT ON THE VENT, 50% FIO2, PEEP 8, SATS 93-95%, EQUAL CHEST EXPANSION. OG IN PLACE TO TUBE FEEDS, LOW RESIDUALS (20-40), H20 FLUSHES GIVEN BENE PROTEIN ORDERED. CLOUD TO DEPENDENT DRAINAGE, ADEQUATE OUTPUT NOTED GREATER THAN 30ML/HR. DR CARPENTER, DR MICHELLE AND DR ORTIZ HERE DURING SHIFT TO ROUND, NO NEW ORDERS RECIEVED AT THE TIMES. DAUGHTER YOMAIRA CALLED, CODE VERIFIED AND UPDATED ABOUT PT'S CARE.
--- NOTE | 2019-08-23 21:02 | NUR ---
Accepted care of patient, she is currently in a prone position, so her physical assessment is difficult to complete at this time. She is restrained, sedated and intubated, VSS, her tube feed is off due to her position. The bed is in a reverse trendelenburg, the bed is flat but her head is somewhat elevated, with pillows at different for her comfort. Will continue to monitor.
[2019-08-24] VITALS (26 sets, daily range): BP systolic 91–164; BP diastolic 54–101
[2019-08-24 05:40] LABS: ABSOLUTE NEUTROPHILS 5.3 thou/uL (1.4-8.2); BASOPHILS 0.4 % (0.0-2.0); EOSINOPHILS 0.1 % (0.0-3.0); HEMATOCRIT 40.3 % (37.0-47.0); LYMPHOCYTES 26.7 % (24.0-44.0); MCH 28.2 pg (26.0-34.0); MCHC 32.4 g/dL (28.0-37.0); MCV 87.1 fL (80.0-100.0); MONOCYTES 8.8 % (1.0-8.0); PLATELET COUNT 308 thou/uL (150-400); RBC 4.62 mil/uL (4.20-5.00); WBC 8.2 thou/uL (4.0-11.0)
[2019-08-24 05:43] LABS: BE(vivo) 2.2 mmol/L (-2 to +3); HCO3 25.8 mmol/L (22.0-26.0); pH 7.462 (7.360-7.450); sO2 90.6 % (92.0-98.0)
[2019-08-24 05:44] LABS: PO2 55.4 mmHg (80.0-100.0)
[2019-08-24 05:56] LABS: ALBUMIN 2.6 g/dL (3.4-5.0); CALCIUM 8.5 mg/dL (8.5-10.1); CREATININE 0.6 mg/dL (0.6-1.0); TOTAL BILIRUBIN 0.6 mg/dL (<0.1-1.0); TOTAL PROTEIN 6.8 g/dL (6.4-8.2)
--- NOTE | 2019-08-24 06:21 | NUR ---
The AM ABG's had a critical value this morning, RT collected another ABG, as the first specimen was likely mixed venous, (it was dark blood and filled slowly). The second draw was arterial and those values resulted in an increase in the FiO2 to 40%. Currently, sats are 100%, VSS. Will continue to monitor.
--- NOTE | 2019-08-24 09:31 | NUR ---
ASSESSMENTS AND INTERVENTIONS DOCCUMENTED. PATIENT OFF SEDATION FOR ABOUT 20 MINUTES BEFORE WAKING UP AND FOLLOWING COMMANDS. PATIENT PLACED ON CPAP PER DR CARPENTER AT 0915. PATIENT IS TOLERATING IT WELL AT THIS TIME.
[2019-08-24 10:34] LABS: BE(vivo) 2.3 mmol/L (-2 to +3); HCO3 26.6 mmol/L (22.0-26.0); PCO2 40.2 mmHg (35.0-45.0); PO2 55.9 mmHg (80.0-100.0); pH 7.439 (7.360-7.450); sO2 90.2 % (92.0-98.0)
--- NOTE | 2019-08-24 21:06 | NUR ---
PATIENT CURRENTLY IN PRONE POSITION, PRONED SINCE 1799.
[2019-08-25] VITALS (12 sets, daily range): BP systolic 94–131; BP diastolic 60–83
--- NOTE | 2019-08-25 02:03 | NUR ---
PATIENT PLACED SUPINE FROM PRONE POSITION, PATIENT PRONED FROM [id number].
--- NOTE | 2019-08-25 06:28 | NUR ---
PATIENT PRONED FOR 8 HOURS OVER NIGHT, NO COMPLICATIONS NOTED. O2 SAT REMAINED ABOVE 90% ON 40% FIO2. TUBE FEEDING RESUME AT 30ML/HR AT 0200. CLOUD PATENT WITH GREATER THAN 30ML OUTPUT/HR. PRECEDEX STARTED AND PROPOFOL STOPPED. PATIENT CURRENTLY MODERATELY SEDATED. NO SIGN OF ACUTE DISTRESS NOTED AT THIS TIME. WILL CONTINUE TO MONITOR.
--- NOTE | 2019-08-25 09:47 | NUR ---
Change tube feed goal to 60ml/hr since propofol discontinued. Can discontinue beneprotein packets once tube feeding at new goal, but continue water flushes.
--- NOTE | 2019-08-25 13:27 | NUR ---
SW reviewed chart and spoke with nursing and attending physician. Pt continues vent weaning trials. Pt remains in Enhanced Isolation as pt has tested COVID-19 positive. Pt will need therapy evaluations once able to participate. SW is following to assist as needed with discharge planning.
--- NOTE | 2019-08-25 19:02 | NUR ---
ASSESSMENTS AND INTERVENTIONS DOCCUMENTED. PATIENT'S DAUGHTER CALLING AND UPDATE GIVEN. VERSED GTT TITRATED OFF. PATIENT MORE ALERT AND RESPONSIVE BUT DID NOT TOLERATE CPAP TRIAL. PATIENT IS PROGRESSING TOWARDS GOALS AT THIS TIME. PATIENT IS MORE ALERT AND FOLLOWING COMMANDS.
[2019-08-26] VITALS (19 sets, daily range): BP systolic 100–180; BP diastolic 62–124
[2019-08-26 07:36] LABS: ABSOLUTE NEUTROPHILS 6.2 thou/uL (1.4-8.2); BASOPHILS 0.5 % (0.0-2.0); EOSINOPHILS 0.9 % (0.0-3.0); HEMATOCRIT 42.4 % (37.0-47.0); HEMOGLOBIN 13.9 gm/dL (12.0-15.0); LYMPHOCYTES 20.7 % (24.0-44.0); MCH 28.3 pg (26.0-34.0); MCHC 32.9 g/dL (28.0-37.0); MCV 86.2 fL (80.0-100.0); PLATELET COUNT 296 thou/uL (150-400); POLYS 68.9 % (36.0-66.0); RBC 4.92 mil/uL (4.20-5.00); RDW 14.2 % (10.5-14.5)
--- NOTE | 2019-08-26 07:43 | NUR ---
Pt alert and responsive. Intubated with minimal sedation. Patient is able to follow commands. No adverse events throught the night. Patient Fios progressed from 40% to 35% tolerated well. Patient is stable and progressing toward goals
[2019-08-26 07:47] LABS: ALBUMIN 2.7 g/dL (3.4-5.0); CALCIUM 8.6 mg/dL (8.5-10.1); CREATININE 0.7 mg/dL (0.6-1.0); MAGNESIUM 2.1 mg/dL (1.8-2.4); POTASSIUM 4.1 mmol/L (3.5-5.1); TOTAL BILIRUBIN 0.9 mg/dL (<0.1-1.0); TOTAL PROTEIN 6.9 g/dL (6.4-8.2)
[2019-08-26 07:55] LABS: APTT 28.2 Seconds (24.5-32.8); D-DIMER 0.86 ug/mLFEU (0.19-0.50); FIBRINOGEN 391.2 mg/dL (210-360); INR 1.1; PROTIME 11.4 Seconds (9.3-11.4)
--- NOTE | 2019-08-26 16:50 | NUR ---
SW reviewed chart and spoke with nursing and attending physician. Pt remains in Enhanced Isolation for COVID-19. Pt continues cpap trials and is on tube feeding. ANA spoke with pt's dtr, Yasemin, via phone to provide update. Pt will need repeat COVID test and therapy orders when able to participate. ANA is following to assist as needed with discharge planning.
--- NOTE | 2019-08-26 22:14 | NUR ---
1999 - DURING SEDATION VACATION, PT OPENED HER EYES TO VERBAL STIMULI AND WAS ABLE TO MAKE EYE CONTACT WITH NURSE. PT FOLLOWED SIMPLE COMMANDS AND WAS ABLE TO NOD HER HEAD YES/NO TO SIMPLE QUESTIONS. SHE NODDED HER HEAD "YES" WHEN ASKED IF SHE WAS COMFORTABLE. PT TOLERATED SEDATION VACATION WELL - NO AGITATION OR CHANGE IN VITAL SIGNS NOTED. PT REMAINS LIGHTLY SEDATED ON PRECEDEX AND DILAUDID GTTS. WILL CONTINUE TO MONITOR FURTHER.
--- NOTE | 2019-08-26 22:21 | NUR ---
PT'S DAUGHTER YOMAIRA CALLED UNIT FOR UPDATE. SHE WAS UPDATED ON POC AND PT STATUS. ALL QUESTIONS ANSWERED.
[2019-08-27] VITALS (19 sets, daily range): BP systolic 108–229; BP diastolic 57–97
--- NOTE | 2019-08-27 04:38 | NUR ---
NO SIGNIFICANT EVENTS DURING THE NIGHT. PT REMAINS LIGHTLY SEDATED WITH PRECEDEX AND DILAUDID ON THE VENTILATOR. PT AWAKENS EASILY WITH VERBAL OR TACTILE STIMULI. BILATERAL SOFT WRIST RESTRAINTS IN PLACE. PT DOES MOVE HER ARMS TOWARD HER FACE WHEN RESTRAINTS ARE UNTIED. AFEBRILE. VSS. REPOSITIONED TO PREVENT SKIN BREAKDOWN. SKIN TEAR NOTED TO COCCYX AREA, BETWEEN BUTTOCKS. BARRIER CREAM APPLIED. ORAL CARE PROVIDED. TF RESIDUAL BETTER THIS MORNING, INCREASE TF TO 35ML/HR GOAL IS 60ML/HR. PROGRESSING SLOWLY TOWARD POC GOALS. WILL CONTINUE TO MONITOR FURTHER.
[2019-08-27 04:55] LABS: CALCIUM 8.9 mg/dL (8.5-10.1); CREATININE 0.6 mg/dL (0.6-1.0); POTASSIUM 4.5 mmol/L (3.5-5.1)
--- NOTE | 2019-08-27 15:49 | NUR ---
SW reviewed chart and spoke with attending physician. Pt remains intubated. Pt is doing vent weaning trials with hopes of extubating soon. Will need therapy evals when pt is able to participate. SW is following to assist as needed with discharge planning.
--- NOTE | 2019-08-27 16:25 | NUR ---
DAUGHTERS CAME TO VISIT, ALLOWED TO SEE PATIENT ONE AT A TIME FOR 30MINUTES EACH. DR. AVENDANO PAGED AND A TEXT SENT VIA [employer]. DR. AVENDANO TEXTED BACK AND STATED NOT ABLE TO TALK TO THEM OVER THE PHONE AT THIS TIME AND WILL CALL WHEN AVAILABLE. DPOA PAPERWORK OBTAINED BY THEATRE INSTRUCTOR FROM FACILITY WHERE PATIENT RESIDES.
--- NOTE | 2019-08-27 21:57 | NUR ---
TUBE FEEDING RESIDUALS GREATER THAN 400. COMPUTER HARDWARE ENGINEER NOTIIED. HOLDING TUBE FEED AT THIS TIME.
[2019-08-28] VITALS (23 sets, daily range): BP systolic 91–133; BP diastolic 57–80
[2019-08-28 05:19] LABS: HEMATOCRIT 42.5 % (37.0-47.0); HEMOGLOBIN 13.8 gm/dL (12.0-15.0); MCH 28.4 pg (26.0-34.0); MCHC 32.5 g/dL (28.0-37.0); MCV 87.2 fL (80.0-100.0); RBC 4.87 mil/uL (4.20-5.00); RDW 14.5 % (10.5-14.5); WBC 9.7 thou/uL (4.0-11.0)
[2019-08-28 05:31] LABS: CREATININE 0.6 mg/dL (0.6-1.0)
[2019-08-28 09:37] LABS: BE(vivo) 1.8 mmol/L (-2 to +3); HCO3 25.5 mmol/L (22.0-26.0); PCO2 37.5 mmHg (35.0-45.0); PO2 58.5 mmHg (80.0-100.0); pH 7.451 (7.360-7.450); sO2 91.6 % (92.0-98.0)
--- NOTE | 2019-08-28 12:10 | NUR ---
ASSUMED CARE AT O700 FROM CHRIS RODGERS. PATIENT NOTED TO HAVE 150 ML OF RESIDUAL FROM OG TUBE, TUBE TO LIS. DR CARPENTER AND DR FARIA INFORMED THAT PATIENT HAD NOT HAD A BM FOR SEVERAL DAYS AND KUB WAS SHOWING A SM BOWEL OBSTRUCTION. ORDERS NOTED. PATIENT PLACED ON CPAP AT 0830 WITH ABG.S DRAWN AT 1 HR. RESULTS CALLED TO DR CARPENTER AT [address] CARPENTER HERE AT 1130 AND ORDERS RECEIVED. PATIENT INCONTIENT OF STOOL, PASSING FLATUS WHEN CLEANING UP. OG ASPIRATED AND PLACED TO LIS IN PREPARATION OF EXTUBATION. DILAUDID OFF SINCE 0800 THIS AM.
--- NOTE | 2019-08-28 12:46 | NUR ---
Patient extubated at 1225 and placed on optiflow at 40% and 40liters. O2 sat is in the mid 90's. Voice is hoarse. Strong cough. OGT also dc'd just prior to extubation. Patient is alert, calm and cooperative. Precedex tappered.
--- NOTE | 2019-08-28 13:49 | NUR ---
Spoke with patient's daughter Yasemin, updated as to extubation.
--- NOTE | 2019-08-28 15:06 | NUR ---
ANA reviewed chart and spoke with nursing and attending physician. Pt was extubated earlier this afternoon. Pt remains in Enhanced Isolation. Therapy orders entered to evaluate pt. ANA discussed with 5N rehab manager to request 5N consult if pt would be a candidate for inpt acute rehab. ANA is following to assist as needed with discharge planning.
--- NOTE | 2019-08-28 19:00 | NUR ---
PATIENT PROGRESSING TOWARDS OUTCOME GOALS EVIDENT BY OFF VENT WITH SAT'S IN THE LOWER 90'S. PRECEDEX WEANED TO 0.2 MG/KG/HR. ORIENTED TO KIND OF PLACE, YEAR, PERSON AND SITUTATION. PULLED UP IN BED SEVERAL TIMES. D5W INFUSING PER ORDER AFTER SPEAKING WITH DR FARIA AND UPDATING HIM AT 1600. REMAINS NPO UNTIL SEEN BY SPEECH THERAPY. WILL CONTINUE TO MONITOR.
--- NOTE | 2019-08-28 22:08 | NUR ---
[id number]-Nurse spoke with patient's daughter, Yasemin, at this time. Nurse updated the patient's daughter on patient's condition at this time regarding the fact that the patient is extubated and on heated high flow oxygen. Daughter updated that PT/OT/ST will be working with patient to get her as close back to baseline as possible. Daughter updated that patient's vitals are stable. Daughter had no other issues or concerns at this time.
--- NOTE | 2019-08-28 22:56 | NUR ---
[id number]-Spoke with Lea Phillips SALES CLOSER, about multiple loose stools with patient. D/t skin issue to the sacral area, a rectal tube has been placed per SALES CLOSER orders.
[2019-08-29] VITALS (20 sets, daily range): BP systolic 96–137; BP diastolic 52–91
--- NOTE | 2019-08-29 07:10 | NUR ---
PATIENT PROGRESSING TO GOALS EVIDENCE BY PATIENT BEING EXTUBATED 08/27. PATIENT STABLE ON HEATED HIGH FLOW @ 40L AND 40% FIO2. VSS. NO MAJOR ISSUES OR CONCERNS NOTED THIS SHIFT. CALL LIGHT IN REACH. WILL REPORT OFF TO DAY SHIFT RN.
--- NOTE | 2019-08-29 07:17 | NUR ---
PATIENT COMPLAINS OF SEVERE PAIN IN SACRAL AREA, CALLED DR. FARIA AND RECEIVED NEW ORDER FOR DILAUDID 1 MG Q4 HOURS PRN. DAY SHIFT RN TO ADMINISTER.
--- NOTE | 2019-08-29 07:44 | NUR ---
ASSUMED CARE AT 0700, ASSESSMENT AND VITAL SIGNS COMPLETED PER ICU PROTOCOL. RN WILL CONTINUE TO FOLLOW POC.
--- NOTE | 2019-08-29 13:15 | NUR ---
PATIENT PROGRESSING PACER WIRES CAPPED , SWAN PULLED WITHOUT INCIDENT. MEDIALSTINAL CHEST TUBES PULLED CHEST TUBE DRAINAGE IS LESS THAN 20 ML/2HRS TIMES 2. CARDENE WEANED DOWN, O2 SAT DOWN TO 88 TO 92% NOW ON 8L/HFNC. WILL CONTINUE TO MONITOR.
--- NOTE | 2019-08-29 13:57 | NUR ---
ANA reviewed chart and spoke with attending physician. Pt was extubated yesterday. Therapy has been ordered to evaluate pt. 5N to evaluate pt on Sunday to determine of pt would qualify for inpt acute rehab. ANA discussed with rehabilitation aide/scheduler. ANA spoke with pt's dtr, Essence, via phone to provide update and discuss possible admissiont to . Pt's dtr is agreeable with plan and will discuss with pt. No weekend discharge planned. Repeat COVID-19 test ordered. ANA is following to assist as needed with discharge planning.
--- NOTE | 2019-08-29 21:15 | NUR ---
pt alert and oriented to person, place and year. pt refused to covid testing today. pt wants it to be done tomorrow. pt was educated on the importance of testing covid sooner to make her treatment plan more efficient.
[2019-08-30] VITALS (20 sets, daily range): BP systolic 103–170; BP diastolic 65–112
--- NOTE | 2019-08-30 06:28 | NUR ---
PT ALERT AND ORIENTED x3. PT REFUSED HER INSULIN TWICE. PT WAS NOT CONSISTENT TO PUT THE HIGHFLOW IN HER NOSE THROUGHOUT THE NIGHT. FORMED SOFT STOOL- FMS OUT. SWALLOW EVALUATION THIS AM. CONTINUE TO MONITOR. CHART CHECK. PT PROGRESSING TOWARDS GOALS.
--- NOTE | 2019-08-30 11:35 | NUR ---
Bedside swallow completed midmorning by speech therapist. Pt passed and diet will be ordered. Dr Larios here and talked with patient. COVID nasal paryngeal swab done with assist of Dr Larios. Specimen will be sent to the lab.
--- NOTE | 2019-08-30 19:15 | NUR ---
Pt has tolerated meals. VSS. RT changed pt to 10 liter high flow cannula. Sponge bath & linen change completed. Barrier cream to wound on coccyx. Report given to RN assuming care. Covid test was positive and result called to Dr Larios today by ANA MARIA Orourke. Continue to support and work toward goals.
--- NOTE | 2019-08-30 19:15 | NUR ---
Up date given to pt's daughter on the phone today and to pt's Aunt with (Rony Cantor) with permission of patient.
[2019-08-31] VITALS (9 sets, daily range): BP systolic 97–131; BP diastolic 55–89
[2019-08-31 06:55] LABS: HEMATOCRIT 43.2 % (37.0-47.0); HEMOGLOBIN 14.3 gm/dL (12.0-15.0); MCH 28.9 pg (26.0-34.0); MCHC 33.2 g/dL (28.0-37.0); MCV 87.1 fL (80.0-100.0); RBC 4.96 mil/uL (4.20-5.00); RDW 14.8 % (10.5-14.5); WBC 10.2 thou/uL (4.0-11.0)
--- NOTE | 2019-08-31 07:12 | NUR ---
Assessments and intervention documented. Pt on High flow NC 10 liters of O2 tolerating well. Able to make needs known. Latest Covid test still positive. No complaints. Patient denies pain and discomfort. Patient is progressing toward goals.
[2019-08-31 07:14] LABS: CALCIUM 8.5 mg/dL (8.5-10.1); CREATININE 0.6 mg/dL (0.6-1.0)
--- NOTE | 2019-08-31 18:12 | NUR ---
ASSUMED CARE AT 0700. PT A&OX4. PT REMAINED ON 10 L HIGH FLOW NC. PT TRANSFERRED TO 3 AT 1515. REPORT CALLED TO ANA MARIA BRADLEY. WHILE PT WAS IN ICU, PT GOT UP TO BEDSIDE COMMODE WITH ASSISTANCE OF 2 AND USE OF GAIT BELT. PT VERY WEAK BUT IS PROGRESSING TOWARDS GOALS.
--- NOTE | 2019-09-01 00:18 | NUR ---
pt complains of pain to the sore on her buttock. it is stinging and constant discomfort. i cleaned her well, she had bowel movement on her skin from earlier in the evening. placed barrier cream to sore area. she could benefit from a numbing agent to her buttock,she does not want tylenol tonight.
[2019-09-01 04:26] VITALS: BP 111/68
--- NOTE | 2019-09-01 04:44 | NUR ---
o2 sats staying greater than 95% over night. continuous pulse ox at bedside. taking adequate po. using bsc with assist only. she continues to be weak, however, strong enough for just one person standby assist to the bsc. pt has been agreeable tonight. se helped, lydia cleaning her bedside table. oxyen decreased by respiratory tonight down to 7.o liters n/c. careplan reviewed.
[2019-09-01 07:00] VITALS: BP 109/78
--- NOTE | 2019-09-01 09:06 | NUR ---
WOUND CARE CONSULT DUE TO COVID ISOLATION LIMITED ASSESSMENT, VIEWED PHOTO FROM 08/27, PER BOAT OUTFITTER STATES WOUNDS BILAT BUTTOCKS AREA SAME PHOTO, UNSURE CAUSE? SHEARING? STATES PT C/O PAIN W/ WOUNDS, SUGGEST ZGUARD AND COVER W/ SACRAL FOAM DRSG, IF STILL PAINFUL MAY CONSIDER MS/SILVADENE CREAM TO WOUNDS, WILL ORDER LOW AIR LOSS PUMP TO BED RECOMMENDATIONS ZGUARD, SACRAL FOAM DRSD DAILY AND PRN, LOW AIR LOSS PUMP TO BED, OFF LOADING, TURN Q 2HOURS BOAT OUTFITTER AWARE
--- NOTE | 2019-09-01 14:26 | NUR ---
SW reviewed chart and spoke with nursing and attending physician. Pt was transferred to from ICU. Pt remains in Enhanced Isolation. Repeat COVID-19 test was positive. SW discussed case with 5N rehabilitation services aide. 5N will submit for insurance authorization when pt is medically stable and has a negative COVID test. SW spoke with pt via phone to provide update and discuss having inpt acute rehab services when medically stable and pending insurance authorization. Pt verbalized understanding and is aware with plan. SW is following to assist as needed with discharge planning.
--- NOTE | 2019-09-01 14:42 | NUR ---
5N CONSULT RECEIVED FOR THIS Pt. Pt STILL TESTING POSITIVE FOR COVID OF 08/30/19. PER DR. MORRIS, Pt WILL NEED AT LEAST ONE NEGATIVE COVID TEST PRIOR TO TRANSFER TO ACUTE REHAB. WILL CONTINUE TO FOLLOW ALONG WITH Pt AND AWAIT NEGATIVE COVID TEST. WILL NEED INSURANCE AUTHORIZATION PRIOR TO TRANSFER TO ACUTE REHAB. THANK YOU FOR THIS REFERRAL.
--- NOTE | 2019-09-01 14:48 | NUR ---
PATIENT CONT TO IMPROVE AT THIS TIME. SHE IS ALERT ORIENTED X4. SHE COULD TRANSFER FROM BED TO BEDSIDE COMMODE WITH MINIMAL ASSIST FROM STAFF. SHE IS UP ON CHAIR FOR MOST MEALS. SHE DOES COMPLAIN OF PAIN TO BILAT BUTTOCKS. NEW ORDERS FOR SILVERDENE/MORPHINE TO BUTTOCKS TO EASE PAIN. WILL CONT WITH PLAN OF CARE.
[2019-09-01 16:00] VITALS: BP 118/78
[2019-09-01 20:55] VITALS: BP 115/60
--- NOTE | 2019-09-02 02:20 | NUR ---
keeping o2 sats mid 90's on 7.0 liters n/c. complained of pain at bedtime. hydrocodone effetive for pain control. continues on cont. pulse ox. keeping heart rate and blood presure in normal limits. careplan reviewed. pt agreees that she is getting stronger each day.
[2019-09-02 04:30] VITALS: BP 121/66
[2019-09-02 08:10] VITALS: BP 106/69
--- NOTE | 2019-09-02 11:54 | NUR ---
PT CARE ASSUMED AT 0700, PT ALERT AND ORIENTED X4, DENIES CHEST PAIN, NAUSEA AND VOMITING. PT IS ON 6L OF OXYGEN, SOB WITH EXERTION. NO SIGNS OF DISTRESS AT THE MOMENT. PT COMPLAINS OF SACRUM WOUND PAIN, STATES PAIN IS TOLERABLE UNLESS IF SHE IS LAYING ON HER BACK. ASSESSMENT COMPLETED. PT IS AFEBRILE, NO COUGH NOTED. CALL LIGHT AND TABLE WITHIN REACH. BED AT LOWEST LEVEL. WILL CONTINUE TO MONITOR.
[2019-09-02 12:30] VITALS: BP 106/73
--- NOTE | 2019-09-02 15:59 | NUR ---
SW reviewed chart and spoke with nursing and attending physician. Pt remains in Enhanced Isolation. Repeat COVID-19 test to be ordered this week. Pt will need a negative test in order to be inpt acute rehab status. SW is following to assist as needed with discharge planning.
[2019-09-02 16:45] VITALS: BP 118/77
--- NOTE | 2019-09-02 18:44 | NUR ---
PT REFUSED HER 0700 AND 1600 SLIDING SCALE INSULIN. EDUCATION REINFORCED. PT REFUSED HER GLUCERNA SUPPLEMENT, STATES THEY GIVE HER DIARRHEA.
[2019-09-02 20:55] VITALS: BP 97/62
[2019-09-03 05:00] VITALS: BP 91/51
--- NOTE | 2019-09-03 05:21 | NUR ---
AT 2100 MED PASS AND ASSESSMENT PT REFUSING WOUND-CARE ON SACRAL AREA. COMPLAINTS OF PAIN, TYLENOL GIVEN WITH GOOD RESULTS. PT HAS LOW LOSS AIR PUMP ON MATTRESS. PT ON CONTINUOS PULSE OX VIA TELEMETRY BOX. PT OXYGEN TITRATED TO 4L WITH O2 AT 98%. ISOLATION PRECAUTIONS BEING FOLLOWED.
[2019-09-03 08:00] VITALS: BP 102/63
--- NOTE | 2019-09-03 10:14 | NUR ---
PT PICC LINES DISCONTINUES AND PRESSURE PUT ON FOR FEW MINUTES. NO ACTIVE BLEEDING NOTED. BADAID APPLIED.
--- NOTE | 2019-09-03 10:17 | NUR ---
PT CARE ASSUMED AT 0700, PT ALERT AND ORIENTED X4, PLEASANT. DENIES ANY CHEST PAIN, NAUSEA AND VOMITING. PT COMPLAINS OF PAIN IN THE SACRUM WOUND, STATES IT TOLERABLE WHEN ITS NOT BEING TOUCH OR SHE IS NOT LAYING ON IT. PT REFUSE SLIDING SCALE INSULIN. DENIES ANY NEEDS AT THE MOMENT. CALL LIGHT AND TABLE IN REACH. BED AT LOWEST LEVEL, WILL CONTINUE TO MONITOR
[2019-09-03 12:22] VITALS: BP 110/71
--- NOTE | 2019-09-03 12:28 | NUR ---
WOUND CONSULT; PREVIOUS TODAY THE ASSESSMENT WAS DONE WITH PICTURE PER DR MORRIS. TODAY'S WOUND CARE PICTURE REQUIRED A PHYSICAL ASSESSMENT. THE RIGHT BUTTOCKS AREA IS NECROTIC AND MALODOROUS. THIS PATIENT IS COVID19 POSITIVE. RECOMMENDATIONS; 1-CONSULT DR MORGAN RUVALCABA DISCUSSED WITH RN, AND DORIS PEREZN
--- NOTE | 2019-09-03 14:09 | NUR ---
SW reviewed chart and spoke with nursing and attending physician. Pt remains in Enhanced Isolation. Repeat COVID-19 test will be ordered later in the week. 5N is following pt for admission to in acute rehab when medically stable. Pt is on 4L of continuous O2. SW spoke with pt via phone to provide update and discuss discharge plan. Pt is aware and agreeable with discharge plan. SW is following to assist as needed with discharge planning.
[2019-09-03 17:10] VITALS: BP 97/64
[2019-09-03 17:57] LABS: HEMOGLOBIN 13.9 gm/dL (12.0-15.0); MCH 28.6 pg (26.0-34.0); MCHC 33.1 g/dL (28.0-37.0); MCV 86.2 fL (80.0-100.0); RBC 4.87 mil/uL (4.20-5.00); RDW 14.9 % (10.5-14.5); WBC 12.7 thou/uL (4.0-11.0)
[2019-09-03 18:20] LABS: CALCIUM 8.5 mg/dL (8.5-10.1); CREATININE 0.7 mg/dL (0.6-1.0); POTASSIUM 3.8 mmol/L (3.5-5.1)
[2019-09-03 20:55] VITALS: BP 90/45
[2019-09-04 04:56] VITALS: BP 94/45
--- NOTE | 2019-09-04 06:06 | NUR ---
Q2 TURNS WERE ATTEMPTED, PT CAN ROLL HER SELF IN BED. PT UP TO BSC WITH MAX ASSIST FROM 1, WITH GAIT BELT AND WALKER. OXYGEN SATS DROP INTO 80'S WITH ANY MOVEMENT. EARLY PART OF SHIFT PT HR WAS IN 130-140, GAVE 5MG OF LOPRESSOR. RATES WERE THEN NOTED AT 90-110. NO FEVER OVERNIGHT. POC WITH IVF GTT. ISOLATION PRECAUTIONS IN PLACE PT IS COVID+.
[2019-09-04 08:00] VITALS: BP 99/51
[2019-09-04 11:33] VITALS: BP 116/72
--- NOTE | 2019-09-04 12:25 | NUR ---
ON-GOING ASSESSMENT: CM REVIEWED CHART. PLANS ARE FOR PATIENT TO HAVE REPEAT COVID TEST TOMORROW. 5N IS FOLLOWING PATIENT. WILL AWAIT COVID TEST RESULTS FOR TOMORROW AND HOW PATIENT TOLERATES THERAPY. CM WILL CONTINUE TO FOLLOW TO ASSIST NEEDED.
[2019-09-04 14:30] VITALS: BP 111/75
--- NOTE | 2019-09-04 15:59 | NUR ---
PT IS A&OX3, PT IS ON ISOLATION FOR COVID POSITION , PT IS CONTINUING O2 5L/MIN/NC, PT HAS SOB WITH ACTIVIES.
[2019-09-04 17:24] VITALS: BP 132/89
[2019-09-04 18:30] VITALS: BP 130/80
[2019-09-04 19:15] LABS: URINE BILIRUBIN NEGATIVE (Negative); URINE BLOOD TRACE (Negative); URINE CLARITY CLEAR; URINE COLOR YELLOW; URINE GLUCOSE-RANDOM* NEGATIVE (Negative); URINE KETONES NEGATIVE (Negative); URINE LEUKOCYTES-REFLEX NEGATIVE (Negative); URINE NITRITE-REFLEX NEGATIVE (Negative); URINE PROTEIN (DIPSTICK) NEGATIVE (Negative); URINE SPECIFIC GRAVITY <= 1.005 (1.005-1.035); URINE UROBILINOGEN 0.2 E.U./dl (0.2-1.0)
--- NOTE | 2019-09-04 20:38 | NUR ---
PT RESTING IN BED TALKING ON PHONE WATCHING TV. NO SOA NOTED WITH HER CONVERSATION. O2 PER NC 6L. LUNGS DIMINISHED. PT REPOSITIONING SELF IN BED. CALLS FOR ASSIST TO BSC. RT PROVIDED NEB AND REMOVED CONTINUOUS PULSE OX. PT PROVIDED HS SNACK. PRN PAIN MEDS GIVEN PRIOR TO WOUND CARE. IV ANTIBIOTICS CONTINUE.
--- NOTE | 2019-09-05 02:09 | NUR ---
IV INFILTRATED. ATTEMPT RESTART TO GIVE 0200ZOSYN. PT EXTREMELY WEAK FOR TRANSFER TO BSC. REQUIRED 2 PERSON ASSIST WITH WALKER.
[2019-09-05 03:39] VITALS: BP 120/67
--- NOTE | 2019-09-05 03:51 | NUR ---
ADDITIONAL ATTEMPT TO RESTART IV NOT SUCCESSFUL. IV TEAM CONSULT PLACED. PT DID NOT RECEIVE 0200 ZOSYN.
--- NOTE | 2019-09-05 05:18 | NUR ---
PT WAS A 2 PERSON MAX ASSIST PT WAS VERY SLOW MOVING UNSTEADY LEANING FORWARD WHEN PREVIOUSLY TAKEN TO BSC. PT REQUESTED TO USE RESTROOM SECOND TIME. NURSE STATED DUE TO HER WEAKNESS AND UNSTEADINESS BED ESTEVEZ WOULD BE USED. PT STATED SHE DID NOT NEED TO URINATE TO HAVE BM. PT STATED BEDPAN WAS UNCOMFORTABLE TO WOUND ON BOTTOM. PT THEN DECIDED SHE DID NOT NEED TO USE RESTROOM. SHORTLY AFTER NURSE LEFT, PT GOT UP SETTING OFF BED ALARM AND WAS STANDING PRIOR TO NURSE BEING ABLE TO GET TO DOOR. PT WAS NOW STEADY AND USING BSC, NO BM.
--- NOTE | 2019-09-05 07:45 | HC ---
[facility] [place] [address] CONSULTATION Name: TOM PITTS Room #: 350-P ADM IN M.R.#: [id number] Admission: 08/12/19 Attend Phys: Kory Larios MD Discharge: Date of : 70 Report #: [id number] THIS REPORT FOR: cc: SANA - Bobbi family physician/PCP SANA - Bobbi family physician/PCP Alexandre Nettles MD ~ CC: Kory HOOD physician/PCP Gray Vila DATE OF SERVICE: 09/03/2019 WOUND CARE CONSULTATION REQUESTING PHYSICIAN: Dr. Larios. CHIEF COMPLAINT: Gluteal sacrococcygeal decubitus ulcer. HISTORY OF PRESENT ILLNESS: This is a 48-year-old black female who is COVID-19 positive, has had a prolonged hospitalization over the past several weeks and is now noted to have worsening of decubitus ulcer in her left gluteal region extending into the presacral region. The patient had been followed by the inpatient's wound care nurse; however, he felt that the wound was getting worse and consulted the wound care team to be involved as well. The patient does complain of pain associated with the wound, worse when she is lying on it better when she is lying on her side. Of note, it appears the patient was intubated in the ICU for several days; however, now is on nasal cannula and off of the Intensive Care Unit. The patient denies any other wounds that she could not heal on her own. PAST MEDICAL HISTORY: Significant for sleep apnea, hypertension, diabetes mellitus, obesity, and chronic back pain. CURRENT MEDICATIONS: Multiple, I reviewed the patient's medication list. DRUG ALLERGIES: RED DYE. SOCIAL HISTORY: The patient has a [id number] history of smoking, but quit several years ago. Drinks alcohol socially. FAMILY HISTORY: Not pertinent to current medical condition. REVIEW OF SYSTEMS: CONSTITUTIONAL: The patient had fevers and chills, which have now resolved. NEUROLOGIC: The patient does complain of intermittent headaches but denies any numbness, tingling, weakness in arms or legs. [facility] [address] [place] [address] CONSULTATION Name: TANISHA PITTSLINE Room #: [facility] IN M.R.#: [id number] Admission: 08/12/19 Attend Phys: Kory Larios MD Discharge: Date of : 70 Report #: [id number] EYES: No complaints. ENT: The patient had a sore throat, this is now resolved. CARDIAC: The patient denies chest pain, palpitations or peripheral edema. RESPIRATORY: The patient still has mild shortness of breath on nasal cannula with associated dry cough. GASTROINTESTINAL: The patient denies nausea, vomiting and diarrhea. GENITOURINARY: The patient denies urgency or frequency. MUSCULOSKELETAL: No complaints. SKIN: There is a decubitus ulcer in the left gluteal region extending up to the presacral region. PHYSICAL EXAMINATION: VITAL SIGNS: Temperature 37.3, pulse 94, respirations 16, BP 110/71, O2 saturation 98% on 4 liters by nasal cannula. GENERAL: This is an alert and oriented x 3, morbidly obese black female who is in no obvious distress at this time. HEENT: Normocephalic, atraumatic. Mucous membranes are dry. Pupils are round. Sclerae white. NECK: Supple, nontender. LUNGS: Slightly diminished breath sounds heard throughout. HEART: Regular. ABDOMEN: Soft, obese and nontender. EXTREMITIES: Evaluation of sacrococcygeal and gluteal region reveals an unstageable decubitus ulcer with the central portion being 100% fibrinous slough without any signs of granulation tissue, is somewhat spongy in nature. There is no significant undermining or tunneling. This extends up into the presacral area. Periwound is intact but extremely tender. There does not appear to be any actual fluctuance. EXTREMITIES: The patient moves all extremities without difficulty. Distal neurovascular otherwise intact. LABORATORY DATA: White count 10.2, hemoglobin 14.3, BUN 9, creatinine 0.6, hemoglobin A1c is 11, and albumin 2.7. IMPRESSION: 1. Unstageable decubitus ulcer of left gluteal and presacral region. 2. COVID-19 positive. 3. Diabetes mellitus. 4. Morbid obesity. 5. Severe protein-calorie malnutrition, albumin 2.7. PLAN: We will start the patient on morphine, Silvadene treatment to the area. Cover this with Xeroform and sacral foam to be changed twice daily. The patient is already on a low air loss mattress. We will have continued to have her turned every 2 hours. We will ensure the patient tries to maximize her oral protein consumption for healing. We will utilize physical and occupational [address] [address] CONSULTATION Name: TANISHA PITTSLINE Room #: 350-P ADM IN M.R.#: [id number] Admission: 08/12/19 Attend Phys: Kory Larios MD Discharge: Date of : 70 Report #: [id number] therapy for strengthening. We will continue all other current medications at this time. I appreciate ability to consult. We will continue to follow the patient. <ELECTRONICALLY SIGNED> By: Alexandre Nettles MD 09/05/19 0745 [id number] Alexandre Nettles MD /nt
[2019-09-05 08:42] VITALS: BP 102/68
[2019-09-05 09:15] LABS: ABSOLUTE NEUTROPHILS 11.9 thou/uL (1.4-8.2); BASOPHILS 0.1 % (0.0-2.0); EOSINOPHILS 0.3 % (0.0-3.0); HEMATOCRIT 36.7 % (37.0-47.0); HEMOGLOBIN 12.2 gm/dL (12.0-15.0); LYMPHOCYTES 11.7 % (24.0-44.0); MCH 28.4 pg (26.0-34.0); MCHC 33.4 g/dL (28.0-37.0); MCV 85.2 fL (80.0-100.0); MONOCYTES 6.6 % (1.0-8.0); PLATELET COUNT 139 thou/uL (150-400); POLYS 81.3 % (36.0-66.0); RBC 4.31 mil/uL (4.20-5.00); RDW 14.9 % (10.5-14.5); WBC 14.6 thou/uL (4.0-11.0)
[2019-09-05 09:32] LABS: ALBUMIN 2.3 g/dL (3.4-5.0); CALCIUM 8.4 mg/dL (8.5-10.1); CREATININE 0.5 mg/dL (0.6-1.0); TOTAL BILIRUBIN 1.3 mg/dL (<0.1-1.0); TOTAL PROTEIN 6.3 g/dL (6.4-8.2)
--- NOTE | 2019-09-05 13:08 | NUR ---
SW reviewed chart and spoke with attending physician. Pt is slowly progressing towards goals for discharge to 5N/inpt acute rehab status. Pt remains in Enhanced Isolation due to COVID-19. Pt to have repeat test ordered today. Pt with fevers and is on 2L of O2. SW spoke with pt via phone to provide update and discuss discharge plan. Pt is aware and in agreement with plan. SW left voice message for pt's dtr, Yasemin, to provide update. No weekend discharge planned. ANA is following to assist as needed with discharge planning.
--- NOTE | 2019-09-05 13:19 | NUR ---
PT TODAY HAS BEEN IN A POSITIVE MOOD, WILLING TO COOPERATE WITH STAFF MEMBERS AND PRO-ACTIVE FOR TREATMENTS/CONSULTS. PT WAS CONVINCED TO TAKE ANOTHER COVID TEST WHICH WILL BE DONE AT 1500 PER REQUEST. PT ALSO ASKED TO HAVE PAIN MEDICATION HYDROCODONE HALF DOSE DUE TO DROWSINESS AND IS TOLERATING THE NEW DOSAGE WELL. TEMP WAS 99.1F TYLENOL WAS GIVEN. POTASSIUM LEVEL IS BEING CORRECTED.
[2019-09-05 13:46] VITALS: BP 104/61
[2019-09-05 16:36] VITALS: BP 117/50
[2019-09-05 20:25] VITALS: BP 109/58
[2019-09-05 23:51] VITALS: BP 105/62
--- NOTE | 2019-09-06 00:54 | NUR ---
PT PROGRESSING SLOWLY TOWARDS D/C GOALS. VSS AFEBRILE. O2SATS WNL. LUNGS CLEAR BUT DIMINISHED. UNLABORED ON 1LNC. PT TRANSFERS TO BSC WITH STANDBY ASSISTANCE TO HELP WITH IV ETC. SHE STATED SHE FEELS WEAK BUT CAN GET TO BSC. REINFORCED FALL PRECAUTIONS AND NEED TO CALL NS PRIOR TO GETTING OOB TO BSC. PT HAS BEEN COMPLIANT TONIGHT SO FAR. WOUND CARE DONE TO INNER BUTTOCKS WOUND, WOUND DRAINAGE IS FOUL SMELLING . RIGHT BUTTOCK IS EDEMATOUS AND FEELS FIRM TO TOUCH COMPARED TO LEFT BUTTOCK AND IS VERY TENDER TO TOUCH WITH GENTLE PRESSURE. WOUND HAS AREAS OF RED WITH YELLOW SLOUGH AND PART HAS DARK BROWN-YELLOW AREAS OF ESCHAR. CLEANED WITH NORMAL SALINE. APPLIED MORPHINE-SILVADENE CREAM XEROFORM GAUZE AND MEPILEX DRESSING. 1 HYDROCODONE GIVEN FOR PAIN 12/24. SHE REFUSED TO TAKE 2 ORDERED. WILL NOTIFY DAY SHIFT NS TO HAVE WOUND CARE ASSESS AND REEVALUATE. PT ON ZOSYN FOR INFECTION. WILL CONTINUE TO MONITOR PT FOR CHANGES.
[2019-09-06 03:34] VITALS: BP 120/62
--- NOTE | 2019-09-06 03:48 | NUR ---
Pt resting in bed getting a breathing treatment. t 99.9. No c/o pain presently. No s/s distress. abx infusing.
[2019-09-06 07:19] VITALS: BP 128/81
[2019-09-06 11:18] LABS: ABSOLUTE NEUTROPHILS 8.8 thou/uL (1.4-8.2); BASOPHILS 0.3 % (0.0-2.0); EOSINOPHILS 1.4 % (0.0-3.0); HEMATOCRIT 36.7 % (37.0-47.0); HEMOGLOBIN 12.2 gm/dL (12.0-15.0); LYMPHOCYTES 13.8 % (24.0-44.0); MCH 28.4 pg (26.0-34.0); MCHC 33.3 g/dL (28.0-37.0); MCV 85.4 fL (80.0-100.0); MONOCYTES 6.5 % (1.0-8.0); PLATELET COUNT 154 thou/uL (150-400); RDW 15.1 % (10.5-14.5); WBC 11.3 thou/uL (4.0-11.0)
[2019-09-06 11:32] LABS: ALBUMIN 2.3 g/dL (3.4-5.0); CALCIUM 8.6 mg/dL (8.5-10.1); CREATININE 0.6 mg/dL (0.6-1.0); MAGNESIUM 1.4 mg/dL (1.8-2.4); POTASSIUM 3.3 mmol/L (3.5-5.1); TOTAL PROTEIN 6.6 g/dL (6.4-8.2)
[2019-09-06 12:00] VITALS: BP 120/70
[2019-09-06 16:13] VITALS: BP 90/62
--- NOTE | 2019-09-06 16:48 | NUR ---
PT'S COVID WAS POSITIVE FROM 09/05/19 TEST, RN HAS NOTIFIED DR, PT IS CONTINUING IOSOLATION.
--- NOTE | 2019-09-06 16:51 | NUR ---
PT IS A&OX3, PT IS CONTINUING IV ABX AND O2 1L/MIN/NC, PT HAS SOB WITH ACTIVIES,PT IS CONTIUNING IOSOLATION FOR POSITIVE COVID, PT 'S BUTTOCK WOUND PAIN CAN CONTROL BY PAIN MEDICATION, PT'S VS AND O2SAT ARE STABLE BY THIS TIME, PT'S WOUND CARE HAS DONE.
[2019-09-06 19:27] VITALS: BP 123/67
--- NOTE | 2019-09-06 20:09 | NUR ---
PT RESTING IN BED. O2 PER NC, IV INTACT. PT REPOSITIONING SELF IN BED. PT NOT SOA WITH CONVERSATION. PT ORDERED [employer]. PT VERBALIZED FRUSTRATION THAT HER ROOM TRAYS ARE DELIVERED TO HER COLD. LUNGS DIMINISHED. PT VERBALIZED WANTING TO BE OUT OF FACILITY THAT HER BIRTHDAY IS [birth year]ER [birth year]. PT STATED SHE IS IN A POOR MOOD TODAY BECAUSE SHE HAD ANOTHER POSITIVE COVID TEST. PT ALLOWED TO VERBALIZE FRUSTRATIONS AND NURSE REVIEWED POSITIVE ASPECTS LOW 02 USE, INCREASE IN STRENGTH, NO TEMP, APPETITE RETURNING. PT CALLS FOR ASSIST FOR TRANSFERS TO BS.
--- NOTE | 2019-09-06 22:07 | NUR ---
PTS WOUND NOW HAS ODOR, R BUTTOCK IS SOLID FIRM TO THE TOUCH LOOKS REDENNED. PROVIDER NOTIFIED. WOUND CONSULT SENT MESSAGE RE CHANGES OBSERVED IN WOUND.
[2019-09-07 04:58] VITALS: BP 137/65
--- NOTE | 2019-09-07 05:29 | NUR ---
PT REPORTS WOUND IS INCREASING IN PAIN. PRN FOR PAIN RELIEF PROVIDED.
[2019-09-07 08:14] VITALS: BP 124/80
[2019-09-07 09:37] LABS: ABSOLUTE NEUTROPHILS 6.8 thou/uL (1.4-8.2); BASOPHILS 0.2 % (0.0-2.0); EOSINOPHILS 2.6 % (0.0-3.0); HEMATOCRIT 36.8 % (37.0-47.0); HEMOGLOBIN 12.2 gm/dL (12.0-15.0); LYMPHOCYTES 17.8 % (24.0-44.0); MCH 28.6 pg (26.0-34.0); MCHC 33.3 g/dL (28.0-37.0); MCV 85.8 fL (80.0-100.0); PLATELET COUNT 173 thou/uL (150-400); POLYS 70.4 % (36.0-66.0); RBC 4.28 mil/uL (4.20-5.00); RDW 14.6 % (10.5-14.5); WBC 9.7 thou/uL (4.0-11.0)
[2019-09-07 09:55] LABS: ALBUMIN 2.4 g/dL (3.4-5.0); CALCIUM 8.3 mg/dL (8.5-10.1); CREATININE 0.6 mg/dL (0.6-1.0); DIRECT BILIRUBIN 0.2 mg/dL (<0.1-0.2); MAGNESIUM 1.6 mg/dL (1.8-2.4); PHOSPHORUS 2.2 mg/dL (2.5-4.9); POTASSIUM 3.4 mmol/L (3.5-5.1); TOTAL BILIRUBIN 0.9 mg/dL (<0.1-1.0); TOTAL PROTEIN 6.8 g/dL (6.4-8.2)
[2019-09-07 12:00] VITALS: BP 137/76
--- NOTE | 2019-09-07 15:44 | NUR ---
PT IS A&OX3, PT IS CONTINUING IV ABX AND PAIN MANAGEMENT, PT IS ON O2 1L/MIN/NC, PT'S VS AND O2SAT ARE STABLE , RN HAS REPORTED TO ABOUT PT'S ABNORMAL LAB RESULTS AND PT'S BUTTOCK WOUND , NEW ORDER RECEIVED, PT IS CONTINUNG ISOLATION FOR COVID POSITIVE.
[2019-09-07 16:00] VITALS: BP 136/80
[2019-09-07 20:00] VITALS: BP 127/74
--- NOTE | 2019-09-08 03:22 | NUR ---
A/O X 4.WEAK BUT ABLE TRANSFER TO THE BEDSIDE COMMODE.PAIN WELL CONTROLLED.MONITOR SHOWS SR.POSSIBLE CT TODAY.TOLD PATIENT NOT TO DRINK UNTIL CT IS DONE.POC CONINUED.
[2019-09-08 04:34] VITALS: BP 139/79
[2019-09-08 06:25] LABS: ABSOLUTE NEUTROPHILS 5.6 thou/uL (1.4-8.2); BASOPHILS 0.4 % (0.0-2.0); EOSINOPHILS 2.9 % (0.0-3.0); HEMATOCRIT 40.8 % (37.0-47.0); HEMOGLOBIN 13.5 gm/dL (12.0-15.0); LYMPHOCYTES 20.9 % (24.0-44.0); MCH 28.7 pg (26.0-34.0); MCHC 33.1 g/dL (28.0-37.0); MCV 86.8 fL (80.0-100.0); MONOCYTES 9.7 % (1.0-8.0); PLATELET COUNT 227 thou/uL (150-400); POLYS 66.1 % (36.0-66.0); RBC 4.71 mil/uL (4.20-5.00); RDW 14.9 % (10.5-14.5); WBC 8.5 thou/uL (4.0-11.0)
[2019-09-08 06:49] LABS: ALBUMIN 2.5 g/dL (3.4-5.0); CALCIUM 8.4 mg/dL (8.5-10.1); CREATININE 0.5 mg/dL (0.6-1.0); MAGNESIUM 1.7 mg/dL (1.8-2.4); PHOSPHORUS 3.6 mg/dL (2.5-4.9); POTASSIUM 3.5 mmol/L (3.5-5.1); TOTAL BILIRUBIN 0.7 mg/dL (<0.1-1.0); TOTAL PROTEIN 7.2 g/dL (6.4-8.2)
[2019-09-08 08:52] VITALS: BP 117/66
[2019-09-08 14:50] VITALS: BP 131/70
--- NOTE | 2019-09-08 17:20 | NUR ---
PATIENT REPORTS PAIN PARTIALLY MANAGED WITH MEDICATION. PATIENT STATES SHE NEEDS TO STAY ON HER LEFT SIDE BECAUSE IT HURTS TO LAY SEMI-SOUZA'S OR ON HER RIGHT SIDE. PATIENT UP TO BEDSIDE COMMODE USING WALKER AND OXYGEN WITH STANDBY ASSIST. PATIENT CALLS FOR ASSISTANCE. WOUND CARE PROVIDED THIS SHIFT. PATIENT RECEIVED CT SCAN, PROVIDERS NOTIFIED OF RESULTS. PATIENT REQUESTED REGULAR DIET, STATES THAT SHE HAS NOT BEEN EATING WELL BECAUSE SHE DISLIKES THE FOOD OPTIONS. SUPPLEMENTS ALSO ORDERED FOR PATIENT THIS SHIFT. PATIENT SHOWS MOTIVATION TO COMPLETE TASKS FOR SELF THIS SHIFT.
[2019-09-08 20:30] VITALS: BP 128/69
[2019-09-09] VITALS (10 sets, daily range): BP systolic 123–178; BP diastolic 68–116
--- NOTE | 2019-09-09 05:43 | NUR ---
PAIN FAIRLY CONTROLLED.BM X 1 THIS SHIFT.REFUSED INSULIN AT BEDTIME.MONITOR SHOWS SR.POC CONTINUED.
[2019-09-09 06:26] LABS: ABSOLUTE NEUTROPHILS 4.3 thou/uL (1.4-8.2); BASOPHILS 0.5 % (0.0-2.0); EOSINOPHILS 4.6 % (0.0-3.0); HEMOGLOBIN 12.8 gm/dL (12.0-15.0); LYMPHOCYTES 30.3 % (24.0-44.0); MCH 28.4 pg (26.0-34.0); MCHC 32.9 g/dL (28.0-37.0); MCV 86.5 fL (80.0-100.0); MONOCYTES 11.6 % (1.0-8.0); PLATELET COUNT 251 thou/uL (150-400); RBC 4.51 mil/uL (4.20-5.00); WBC 8.1 thou/uL (4.0-11.0)
[2019-09-09 06:41] LABS: CALCIUM 8.8 mg/dL (8.5-10.1); CREATININE 0.6 mg/dL (0.6-1.0); MAGNESIUM 1.7 mg/dL (1.8-2.4); PHOSPHORUS 3.8 mg/dL (2.5-4.9); POTASSIUM 3.4 mmol/L (3.5-5.1)
--- NOTE | 2019-09-09 06:42 | NUR ---
DR CONTE CALLED AND ORDERED PATIENT TO BE NPO FOR A POSSIBLE SURGERY TODAY.PATIENT IS INFORMED AND MADE NPO.
--- NOTE | 2019-09-09 10:17 | NUR ---
Received awake on bed. On O2 at 2lpm via nasal cannula. On nothing per orem- pt informed and aware. On blood sugar monitoring- taken and recorded accordingly; with sliding scale insulin prescribed- omitted pre-breakfast dose- pt on NPO. With SL at L wrist- infiltrated- to be reinserted but pt refused and physician present in the room, pt to have PICC line instead. Order for PICC line placement placed, paged IV team; consent-signed. With sacral wound- dressing in place; pt scheduled to have I&D today- Dr Starr called algology teacher nurse to inform her that pt is scheduled for I&D, pt was placed on NPO. Called oncall surgeon to inform that pt had Levonox at 1950 yesterday 09/08/2019; Dr Luis Neal called back and informed him. Consent for procedure to be signed. Able to use bedside commode; continent of bowel and bladder. Complained of pain, due PRN pain meds given as prescribed. To continue monitoring patient.
--- NOTE | 2019-09-09 11:18 | NUR ---
VASCULAR ACCESS TEAM CONSULTED FOR PICC LINE. PT HAD PICC FEW WEEKS AGO, VERBALIZED UNDERSTANDING OF BENEFITS AND RISK OF PICC. LABS,HISTORY,ORDER AND MEDS, CONSENT VERIFIED. AUGUSTINA CEPHALIC WAS WIDELY PATENT WITH USG. 4FR POWER SL PICC TRIMMED TO 43CM INSERTED TO 1CM EXTERNAL. SRAR CXR ORDERED
--- NOTE | 2019-09-09 12:09 | NUR ---
PT UNABLE TO LAY ON HER BACK SO PICC PLACED WITH PT TURMED ON LEFT SIDE. 1ST CXR UNABLE DETERMINE PICC PLACEMENT. PICC REPOSITIONED AND 2ND CXR DONE, SHOWN TO ANESTHESIA MD PRIOR TO PT TAKEN OFF TO OR
--- NOTE | 2019-09-09 12:15 | NUR ---
2ND CXR CONFIRMED PICC NEAR CAJ. RELEASED FOR IMMEDIATE USE TO [facility] RODGERS PER PROTOCOL.
--- NOTE | 2019-09-09 12:40 | NUR ---
SW reviewed chart and spoke with nursing and attending physician. Pt remains in Enhanced Isolation. Pt repeat COVID test was positive on 09/04. Pt to have I&D of left and right buttock abscesses today per surgery. Pt had PICC line placed earlier today. 5N is following for admission to inpt acute rehab status when medically stable. SW is following to assist as needed with discharge planning.
--- NOTE | 2019-09-09 14:31 | NUR ---
RECOVERING COVID PT IN ICU ROOM 240. PT IS ON OXYGEN VIA SIMPLE MASK. SURGICAL DRESSING RIGHT BUTTOCKS AND PATIENT IS TO REMAIN RESTING ON SIDE AND NOT ON BACK. ORIENTED TO ROOM AND UNIT, BED LOW AND LOCKED, SIDE RAILS UPX3, CALL LIGHT IN REACH, TELE APPLIED TO PT. WILL CONTINUE TO ASSESS.
--- NOTE | 2019-09-09 15:10 | NUR ---
PATIENT TRANSFERRED TO ICU S/P I&D WILL AWAIT NEW ORDERS ONCE PATIENT IS MEDICALLY APPROPRIATE.
--- NOTE | 2019-09-09 15:57 | NUR ---
PT TRANSFERRED TO ROOM 350.
--- NOTE | 2019-09-10 06:32 | NUR ---
PAIN CONTROL IS WHAT PT WANTED AFTER I&D. DRESSING CLEAN/DRY/INTACT. IT WAS NOT REMOVED FOR 2100 DRESSING CHANGE PER ORDER FROM PHYSICAN TO LEAVE IN PLACE OVERNIGHT. PT STATES SHE SLEPT GREAT OVERNIGHT. PLACED EXTERNAL FEMALE CATH. PT STILL HAS NOT URINATED SINCE YESTERDAY. HOURLY ROUNDING AND CALL LIGHT WITHIN REACH. ISOLATION PRECAUTIONS IN PLACE. PT STILL REFUSING INSULIN AND LOVENOX.
[2019-09-10 08:21] VITALS: BP 123/76
[2019-09-10 10:43] LABS: HEMATOCRIT 38.1 % (37.0-47.0); HEMOGLOBIN 12.6 gm/dL (12.0-15.0); MCH 28.6 pg (26.0-34.0); MCHC 33.1 g/dL (28.0-37.0); MCV 86.3 fL (80.0-100.0); RBC 4.41 mil/uL (4.20-5.00); RDW 15.6 % (10.5-14.5)
--- NOTE | 2019-09-10 14:11 | NUR ---
SW reviewed chart and spoke with nursing and attending physiican. Pt had surgical I&D yesterday. Pt transferred back to 3W from ICU yesterday. Pt remains in Enhanced Isolation due to COVID-19. Pt's repeat test is positive. Pt will need repeat test and negative results in order to be made 5N inpt rehab status. SW spoke with pt via phone to provide update and discuss transitioning to 5N status when medically stable. Pt verbalized understanding and is agreeable. SW is following to assist as needed with discharge planning.
--- NOTE | 2019-09-10 18:18 | NUR ---
ASSUMED PATIENT CARE AT 0700. A/O X4. ON BED REST. PAIN MEDS GIVEN NEED. WET TO DEY CHONG BUTTOCKS DRESSING CHANGED. PROGRESSING TOWARDS POC GOALS.
--- NOTE | 2019-09-10 20:29 | NUR ---
PT RESTING IN BED,EASILY AWAKENED. O2 PER NC 1L. LL DIMINISHED, HR DISTANT. PT CHEERFUL, NO SOA WITH TALKING. DISCUSSING THAT HER ABCESS WOUND HURT MORE THAN CHILDBIRTH. IV ANTIBIOTICS INTACT, PICC GUSTAVO. FEMALE EXT CATH INTACT. COCCYX DRESSING INTACT. PT REPOSITIONING SELF IN BED. PRN ORAL FOR PAIN, STATED SHE IS USING IV FOR WOUND CARE. PT STATED TOLD HER WOUND DRESSING IS DONE DAILY NOW, BHARAT ZUNIGA CHANGE. DISCUSSING PLAN TO ATTEND REHAB.
[2019-09-11 04:58] VITALS: BP 109/63
[2019-09-11 08:41] VITALS: BP 142/74
--- NOTE | 2019-09-11 12:57 | NUR ---
SW reviewed chart and spoke with nursing and attending physician. Pt is s/p surgical I&D. Pt remains in Enhanced Isolation due to COVID-19. Repeat COVID test to be ordered. ANA discussed case with 5N occupational rehabilitation aide. 5N is following for admission to inpt acute rehab status pending repeat COVID test results and insurance authorization. SW is following to assist as needed with discharge planning.
--- NOTE | 2019-09-11 13:49 | NUR ---
PT CARE ASSUMED AT 0700, PT IS ALERT AND ORIENTED X4, PT DENIES ANY CHEST PAIN, NAUSEA AND VOMITING. PT IS ON 1L OF OXYGEN. SACRUM WOUND DRESSING CHANGED. PT GAVE HERSELF A BED BATH. ASSESSMNET AND VITAL SIGNS COMPLETED. REFUSE 0800 AND 1100 SLIDING SCALE INSULIN. BED AT LOWEST LEVEL WITH ALARM ON. WILL CONTINUE TO MONITOR.
[2019-09-11 16:41] VITALS: BP 126/62
[2019-09-11 19:14] VITALS: BP 104/56
--- NOTE | 2019-09-11 20:05 | NUR ---
PT REPORTS WOUND DRESSING IS TO BE ONLY DAILY. REFUSING HS DRESSING CHANGE. PROVIDER CONTACTED RE CURRENT ORDERS FROM PRIOR TO I&D. CONSULT TO WOUND NURSE PLACED REQUESTING CLARIFICATION OF NEW WOUND ORDERS AND PROVIDER AWARE.
--- NOTE | 2019-09-11 21:23 | NUR ---
PT RESTING IN BED WATCHING TV. PT VERBALIZED USING BSC AND HAVING THERAPY AND BEING TIRED. IV ANTIBIOTICS INTACT. O2 PER NC. LUNGS REMAIN DIMINISHED. BUTTOCK WOUND DRESSING INTACT, PT REFUSED SECOND WOUND CHANGE STATING SHE WAS TOLD BY WOUND DR THAT IT WAS DAILY. PROVIDER WIRE CHARGER NOTIFIED AND WOUND CONSULT PLACED RE NEED FOR UPDATED ORDER. PT PROVIDED HS SNACK, PRN FOR PAIN X1. PT REPOSITIONING SELF IN BED. PT DECLINED HS FSBS COVERAGE.
[2019-09-12 03:22] VITALS: BP 130/60
[2019-09-12 08:42] VITALS: BP 143/90
--- NOTE | 2019-09-12 11:41 | NUR ---
SW reviewed chart and spoke with nursing and attending physician. Pt is s/p surgical debridement and is progressing towards goals for discharge. Pt remains in Enhanced Isolation due to COVID-19. Repeat COVID test ordered today. Pt must have two negative tests in order to be made inpt acute rehab status on 3W. No weekend discharge planned. Pt is aware and in agreement with plan. SW is following to assist as needed with discharge planning.
--- NOTE | 2019-09-12 17:09 | HC ---
[facility] [place] [address] CONSULTATION Name: TOM PITTS Room #: 350-P ADM IN M.R.#: [id number] Admission: 08/12/19 Attend Phys: Kory Larios MD Discharge: Date of : 70 Report #: [id number] THIS REPORT FOR: cc: SANA - No family physician/PCP SANA - No family physician/PCP Chema Olmstead MD ~ CC: Kory Larios [facility] physician/PCP Gray Vila DATE OF SERVICE: 09/01/2019 HISTORY OF PRESENT ILLNESS: The patient is a 48-year-old -[place] female who was originally admitted on 08/12/2019 with acute shortness of breath, was noted to have hypoxic respiratory failure, COVID positive, was on the ventilator for 6 or 7 days. She was diagnosed with a small-bowel obstruction that has since resolved. She also was noted to have severe sepsis that has improved. She has improved as far as her pulmonary status was on 50 liters high flow and is now on 7 liters nasal cannula. She is followed closely by Pulmonary Medicine, Infectious Disease and Internal Medicine. We are seeing her in rehabilitation medicine consultation. PAST MEDICAL HISTORY: Includes obstructive sleep apnea, hypertension, diabetes mellitus, obesity, chronic back pain. MEDICATIONS: Please see the full medication listing. ALLERGIES: RED DYE. SOCIAL HISTORY: Lives with mother, brother in a home with one step and then 15 steps up with a handrail. Her mother is retired and her brother works outside the home. They apparently both have been COVID positive as well. She was premorbidly independent, ambulatory without gait aids. REVIEW OF SYSTEMS: Did not offer any current complaints of chest pain, shortness of breath or abdominal discomfort. She does have chest pain with increased activity. PHYSICAL EXAMINATION: GENERAL: She is a pleasant 48-year-old -[place] female in no obvious distress. She is somewhat overweight. VITAL SIGNS: Temperature is 98.3, pulse 83, respirations 17, blood pressure 109/78. She is on 7 liters nasal cannula. HEENT: Facies are symmetric. EXTREMITIES: Functional range of motion of both upper extremities. Strength is grade 4-/5. DTRs are trace to 1. Lower extremities, no focal calf swelling, [facility] [address] [place] [address] CONSULTATION Name: TOM PITTS Room #: [facility]- ADM IN M.R.#: [id number] Admission: 08/12/19 Attend Phys: Kory Larios MD Discharge: Date of : 70 Report #: [id number] functional range of motion with strength grade 3+ to 4-/5. She was able to transfer with contact guard and did do some limited standing with assistance and has started some limited marching in place. Her rectal tube has been out. ASSESSMENT: A 48-year-old female with the following problem list: 1. Critical illness myopathy, which appears to be improving. 2. Medical complexity with generalized debilitation. 3. Acute hypoxic respiratory failure, COVID positive. 4. Severe sepsis, improved. 5. Small-bowel obstruction, resolved. 6. Diabetes mellitus type 2. 7. Obstructive sleep apnea. 8. Past history of tobacco abuse. 9. History of chronic back pain. PLAN: The patient is a good candidate and would benefit from an acute in-hospital inpatient rehabilitation stay to further maximize her functional independence while continuing to treat her multiple medical comorbidities. Would recommend changing the patient to an acute rehab status and continuing with the multiple production consultant physician involvement. She now has the tolerance and would benefit from a short acute rehab stay, so we can try to get her back home. Insurance precertification issues to be obtained. Discussion with the patient who is amenable. <ELECTRONICALLY SIGNED> By: Chema Olmstead MD 09/12/19 1709 [id number] Chema Olmstead MD /PMT
--- NOTE | 2019-09-12 18:24 | NUR ---
ASSUMED PATIENT ACRE AT 0700. VSS. AFEBRILE. DRESSING CHANGE PER ORDER. PROGRASSING TOWARDS POC GOALS.
[2019-09-12 19:21] VITALS: BP 146/74
--- NOTE | 2019-09-12 20:27 | NUR ---
PT REPORTED CONTINUED WOUND PAIN, PROVIDER NOTIFIED, IV FENTANYL X 1 ORDERED AND PROVIDED. PT STATING IV MED IS NOT PROVIDING TOTAL RELIEF. ORAL PRN DUE 2100. PT STATED SHE DID NOT ROUTINELY TAKE ORAL PAIN MEDS TODAY AND DID NOT MEDICATE PRIOR TO HAVING WOUND CARE DONE, SHE STATED SHE THINKS THIS MAY BE WHY HER PAIN IS HIGHER TONIGHT.
--- NOTE | 2019-09-12 21:23 | NUR ---
PROVIDER AND WILTON WEAVER NOTIFIED COVID TEST ON 09/12/19 REMAINS POSITIVE.
--- NOTE | 2019-09-12 21:27 | NUR ---
PT RESTING IN BED WATCHING TV. IVF INTACT. PT USING BSC, STEADY GAIT AND TRANSFERS. COCCYX WOUND DRESSING INTACT. PT REPORTS INCREASED PAIN IN WOUND AND THAT SHE DID NOT ROUTINELY TAKE ORAL PAIN MEDS TODAY. PT VERBALIZED IRRITABILITY AND FEELING BAD TODAY RELATED TO WOUND PAIN AND CONTINUED COVID RESULTS, THAT SHE WANTS TO GO HOME. O2 PER NC. SNACK PROVIDED. SAD AFFECT, POOR EYE CONTACT.
--- NOTE | 2019-09-13 01:08 | NUR ---
PER PT REQUEST PROVIDER NOTIFIED OF FIRM NODULES ON ABD SIDE AND BACK, NOT RAISED ABOVE THE SKIN, BUT ABLE TO BE PALPATED. NURSE DID NOT FEEL THESE NODULES EARLIER IN SHIFT OR YESTERDAY, PROVIDER UPDATED.
[2019-09-13 04:04] VITALS: BP 128/87
[2019-09-13 08:37] VITALS: BP 152/96
[2019-09-13 10:00] VITALS: BP 146/75
--- NOTE | 2019-09-13 15:57 | NUR ---
Assumed pt care this am, alert and oriendted x 4. Blood sugar checks done, refused insulin. Inforemd Dr. Larios sliding scale was changed to low vs moderate. Wound care and dressing change done, seen by Dr. Starr instructed to continue dressing changes, picture to be taken tomorrow as per MD request. Pain is managed with medications, pt prefers to stay on the commode to avoid pressure on the open wound on the buttocks. Wound is very tender to the touch. Pt verbalizaed concern with regards to nodules that can be palpated over the abdoment that have recently occured. Informed Dr. Larios while in the room with the pt. MD mentioned this was d/t/ lovenox shots. Pt has been emotional through out the shift since covid test have come back positive and wants to go home and attend the weddin of her son. Isolation maintained, POC followed.
[2019-09-13 17:15] VITALS: BP 146/79
[2019-09-13 19:50] VITALS: BP 137/68
[2019-09-14 05:17] VITALS: BP 130/67
--- NOTE | 2019-09-14 05:51 | NUR ---
ANGELITA ON ROOM AIR. PATIENT UP AD FORREST. PAIN CONTROLLED WITH PAIN MEDICATION.
[2019-09-14 06:00] LABS: ABSOLUTE NEUTROPHILS 2.7 thou/uL (1.4-8.2); BASOPHILS 1.2 % (0.0-2.0); EOSINOPHILS 7.2 % (0.0-3.0); HEMATOCRIT 38.6 % (37.0-47.0); HEMOGLOBIN 12.8 gm/dL (12.0-15.0); LYMPHOCYTES 43.5 % (24.0-44.0); MCH 28.7 pg (26.0-34.0); MCHC 33.1 g/dL (28.0-37.0); MCV 86.8 fL (80.0-100.0); MONOCYTES 8.3 % (1.0-8.0); PLATELET COUNT 330 thou/uL (150-400); POLYS 39.8 % (36.0-66.0); RBC 4.44 mil/uL (4.20-5.00); RDW 15.8 % (10.5-14.5); WBC 6.8 thou/uL (4.0-11.0)
[2019-09-14 06:04] LABS: ALBUMIN 2.4 g/dL (3.4-5.0); CALCIUM 8.4 mg/dL (8.5-10.1); CREATININE 0.6 mg/dL (0.6-1.0); TOTAL BILIRUBIN 0.5 mg/dL (0.2-1.0); TOTAL PROTEIN 6.7 g/dL (6.4-8.2)
[2019-09-14 08:25] VITALS: BP 149/78
[2019-09-14 17:10] VITALS: BP 136/71
--- NOTE | 2019-09-14 17:48 | NUR ---
ASSUMED PATIENT CARE AT 0700. A/O X4. UP AD FORREST. VSS. PROGRESSING TOWARDS POC GOALS.
[2019-09-14 20:10] VITALS: BP 148/81
[2019-09-15 03:19] VITALS: BP 140/86
--- NOTE | 2019-09-15 05:54 | NUR ---
ASSUMED CARE AT 1900, ASSESSMENT COMPLETED. PT REPORTS PAIN IN BUTTOCKS R/T WOUND, GAVE NORCO TWICE OVERNIGHT. DENIES SOB, LUNGS ARE DIMINISHED WITH SLIGHT COARSENESS ON RLL, SATTING WELL ON RA. NO FEVER OVERNIGHT. WOUND DRESSING C/D/I OVERNIGHT. IV ABX INFUSING THROUGH PICC. NO OTHER CONCERNS, WILL CONTINUE TO MONITOR.
[2019-09-15 08:22] VITALS: BP 139/89
--- NOTE | 2019-09-15 13:07 | NUR ---
SW reviewed chart and spoke with nursing and attending physician. Pt remains in Enhanced Isolation due to COVID-19. Pt's repeat test last week was positive. Wound care following for possible wound vac placement. 5N is following for admission to inpt acute rehab when pt has two negative COVID-19 tests. SW is following to assist as needed with discharge planning.
--- NOTE | 2019-09-15 16:35 | NUR ---
5N ACUTE REHAB STILL FOLLOWING THIS Pt. Pt CONTINUING TO TEST POSITIVE FOR COVID-19 OF 09/12/19. ANOTHER COVID TEST PENDING TODAY. CONTINUING TO FOLLOW THIS Pt WITH REGARDS TO NEEDS FOR 5N ACUTE REHAB.
--- NOTE | 2019-09-15 18:22 | NUR ---
PROGRESSING TOWARDS POC GOALS. DRESSING CHANGED PER ORDER.
[2019-09-15 20:12] VITALS: BP 142/91
--- NOTE | 2019-09-16 04:15 | NUR ---
Patient making slow progress towards outcome goals. Oxygenation optimal on room air. Short of air with activity. Good pain control with Hydrocodone. Vital signs stable. Up adlib within room without difficulty.
[2019-09-16 04:30] VITALS: BP 110/67
[2019-09-16 08:00] VITALS: BP 150/90
[2019-09-16 11:19] VITALS: BP 155/90; BP 99/60
--- NOTE | 2019-09-16 11:46 | O ---
[facility] [place] [address] OPERATIVE REPORT Name: TOM PITTS Room #: 350-P ADM IN M.R.#: [id number] Admission: 08/12/19 Attend Phys: Kory Larios MD Discharge: Date of : 70 Report #: [id number] THIS REPORT FOR: cc: SANA - Bobbi family physician/PCP SANA - No family physician/PCP Erasmo Starr MD ~ CC: Kory HOOD physician/PCP Gray Vila DATE OF SERVICE: 09/09/2019 PREOPERATIVE DIAGNOSES: Left buttock pressure ulcer measuring approximately 4 x 4 cm, right buttock abscess. POSTOPERATIVE DIAGNOSES: Left buttock pressure ulcer measuring approximately 4 x 4 cm, right buttock abscess. OPERATION: 1. Excisional debridement of left buttock abscess, 4 x 8 cm. 2. Incision and drainage of right buttock abscess. SURGEON: Erasmo Starr MD ANESTHESIA: General. ESTIMATED BLOOD LOSS: Minimal. SPECIMEN: Fluid for culture and sensitivity. DESCRIPTION OF PROCEDURE: After informed consent was obtained, the patient was brought to the operating room and placed supine. SCDs were placed and working, preoperative antibiotics were administered, general anesthesia was induced. The patient was placed in the left lateral decubitus position with an axillary roll and all bony prominences protected with foam. The buttock was prepped and draped in the usual sterile fashion. The left buttock was examined. There was an ulceration measuring approximately 4 x 4 cm. I performed an excisional debridement. Depth was down through the muscle. 100% of the wound was debrided. Post-debridement wound area was 4 x 8 x 0.5 cm. There were no complications and the wound bed was fair. I used a curette to remove away necrotic slough. Tracking up superiorly, there was a pocket of pus. I extended the incision of the debridement superiorly and to the right. This entered the abscess cavity. Cultures were taken. The area was then copiously irrigated and packed with gauze. Sterile dressings were applied. [facility] [address] [place] [address] OPERATIVE REPORT Name: TOM PITTS Room #: [facility] IN M.R.#: [id number] Admission: 08/12/19 Attend Phys: Kory Larios MD Discharge: Date of : 70 Report #: [id number] COMPLICATIONS: None. DISPOSITION: The patient was taken to recovery in satisfactory condition. <ELECTRONICALLY SIGNED> By: Erasmo Starr MD 09/16/19 1146 [id number] Erasmo Starr MD /nt
--- NOTE | 2019-09-16 13:57 | NUR ---
SW reviewed chart and spoke with nursing and attending physician. Pt is slowly progressing towards goals for discharge. Pt's repeat COVID-19 is positive. 5N has been following pt for possible admission to inpt acute rehab. Pt may be able to discharge home with HH. SW spoke with pt via phone to discuss Rehab v. Home with HH. Pt is agreeable with HH services, but would like her wounds to heal a little bit more prior to discharging home. Pt has not used HH in the past and does not have a preference of provider. Pt's PCP is Dr. Mellisa Gregorio. SW provided update to pt regarding her mother, who is currently in ICU. Pt has requested [facility] ppwk faxed to [facility] for completion. ANA contacted volunteer services to determine if pt mail is being delivered during this time. ANA faxed face sheet to [facility] to see if they take pt's insurance. ANA is following to assist as needed with discharge planning.
--- NOTE | 2019-09-16 15:18 | NUR ---
PT IS A&OX3, PT IS CONTINUING IV ABX , WOUND CARE AND PAIN MANAGEMENT, PT GETS UP TO USE BSC ,PT DENIES SOB AND N/V , PT'S VS ARE STABLE, PT IS CONTINUNG ISOLATION FOR POSITIVE COVID . PT IS RELAXING NOW.
[2019-09-16 17:00] VITALS: BP 147/90
[2019-09-16 19:26] VITALS: BP 150/91
[2019-09-17 07:56] VITALS: BP 148/91
--- NOTE | 2019-09-17 13:26 | NUR ---
ANA reviewed chart and spoke with nursing and attending physician. Pt remains in Enhanced Isolation due to COVID-19. Pt remains positive. Pt is progressing towards goals for discharge. Pt should be able to return home with HH when medically stable. Pt will need wound car services at home. [facility] is out of network with pt's insurance. ANA sent referral to [facility], who also is out of network. ANA faxed referral to [facility] and spoke with Luna, who states they are able to accept pt on service. Awaiting input from wound care at this time. ANA is following to assist as needed with discharge planning.
--- NOTE | 2019-09-17 14:54 | NUR ---
PATIENT PROGRESSING WELL IN THERAPY. DISCHARGE PLAN AT THIS TIME IS TO D/C TO HOME WITH HOME HEALTH CARE. REHAB AVAILABLE TO REASSESS IF NEEDS CHANGE. THANK YOU FOR THIS REFERRAL.
[2019-09-17 16:00] VITALS: BP 146/86
--- NOTE | 2019-09-17 19:42 | NUR ---
PT IS A&OX3, PT IS CONTINUING PAIN MANAGEMENT, WOUND CARE AND IV ABX, PT'S VS ARE STABLE, PT DENIES SOB AND N/V AT DAY SHIFT, PT CAN GET UP TO USE BSC WITHOUT ASSIST, PT HAS PT/OT WORKED WITH HER.
[2019-09-17 19:53] VITALS: BP 147/82
--- NOTE | 2019-09-17 22:01 | NUR ---
PT IS A&OX3, PT'S VS ARE STABLE, PT IS RELAXING , SHE DENIES PAIN AND SOB, PT IS CONTINUNG ISOLATION FOR POSITIVE COVID.
--- NOTE | 2019-09-17 23:26 | NUR ---
PT ASLEEP IN BED. TOOK OVER CARE AT 2300.
[2019-09-18 05:18] VITALS: BP 126/81
[2019-09-18 08:12] VITALS: BP 149/92
[2019-09-18] MEDS ORDERED: MIRALAX17 GM PO (11:57)
[2019-09-18] MEDS ORDERED: AMOXICILLIN875 MG PO (11:57)
[2019-09-18] MEDS ORDERED: MAGNESIUM400 MG PO (11:57)
[2019-09-18] MEDS ORDERED: PEPCID20 MG PO (11:57)
[2019-09-18] MEDS ORDERED: METRONIDAZOLE500 M4 PO (11:57)
[2019-09-18] MEDS ORDERED: ACETAMINOPHEN325 M1 PO (11:57)
[2019-09-18] MEDS ORDERED: CLARITIN10 M2 PO (11:57)
[2019-09-18] MEDS ORDERED: DALMANE15 MG PO (11:57)
[2019-09-18] MEDS ORDERED: MULTIVITAMINS1 EAC7 PO (11:57)
[2019-09-18] MEDS ORDERED: IPRAT-ALBUT 0.5-3 ML INH (11:57)
[2019-09-18] MEDS ORDERED: NORCO 7.5-3251 EACH PO (11:57)
[2019-09-18 12:17] VITALS: BP 149/92
--- NOTE | 2019-09-18 14:46 | NUR ---
DISCHARGE NOTE: ANA reviewed chart and spoke with nursing and attending physician. Pt is medically stable for discharge home today with services. ANA discussed with physical therapy. Pt needing a roller walker for home. ANA spoke with pt via phone to discuss discharge plan. Pt is aware and in agreement with discharge plan. No preference of DME provider. ANA explained that [facility] will be contacting her to arrange her home health visits. Pt verbalized understanding. Pt's family will provide transportation home. ANA updated pt's nurse who is working on getting pt's new scripts. Pt normally uses the [facility] [address] [facility]. She may have scripts filled at [facility] prior to discharge. Pt to go to ICU to see her mother, who is currently an ICU pt, prior to discharge. ANA updated ICU staff. ANA faxed finalized discharge orders/summary to [facility]. Spoke with Luna in intake to confirm info was received. Contact info for [facility] placed in pt's discharge summary. ANA notified [facility] liaison of need for walker. Walker delivered to pt's nurse. No additional SW needs identified at this time, but is available to assist should needs arise.
--- NOTE | 2019-09-18 15:34 | NUR ---
ASSUMED PATIENT CARE AT 0700. PICC LINE DC'D. DRESSING CHANGED. DC TO HOME WITH HH.
== END 2019-09-18 16:20 | disposition home health service (06) | DRG 853 ==
LOC: ER 20:44 → EROBS 23:15 → ICU 23:15 → 3W 23:15 → ICU 08-13 21:15 → 3W 08-31 15:59 → ICU 09-09 14:10 → 3W 09-09 16:19
PROVIDERS: Emergency Medicine; Internal Medicine; Internal Medicine Infectious Disease; Internal Medicine Pulmonary Disease; Nurse Practitioner Family; Pediatrics; Specialist; Surgery; ADMIT Hospitalist
PROC: 5A09457 Assistance with Respiratory Ventilation, 24-96 Consecutive Hours, Continuous Positive Airway Pressure (ICD-10-PCS; 2019-08-13)
PROC: 30233M1 Transfusion of Nonautologous Plasma Cryoprecipitate into Peripheral Vein, Percutaneous Approach (ICD-10-PCS; 2019-08-15)
PROC: 5A09357 Assistance with Respiratory Ventilation, Less than 24 Consecutive Hours, Continuous Positive Airway Pressure (ICD-10-PCS; 2019-08-16)
PROC: 5A09357 Assistance with Respiratory Ventilation, Less than 24 Consecutive Hours, Continuous Positive Airway Pressure (ICD-10-PCS; 2019-08-17)
PROC: 5A09357 Assistance with Respiratory Ventilation, Less than 24 Consecutive Hours, Continuous Positive Airway Pressure (ICD-10-PCS; 2019-08-18)
PROC: 5A09357 Assistance with Respiratory Ventilation, Less than 24 Consecutive Hours, Continuous Positive Airway Pressure (ICD-10-PCS; 2019-08-19)
PROC: 5A1955Z Respiratory Ventilation, Greater than 96 Consecutive Hours (ICD-10-PCS; principal; 2019-08-20)
PROC: 5A09357 Assistance with Respiratory Ventilation, Less than 24 Consecutive Hours, Continuous Positive Airway Pressure (ICD-10-PCS; principal; 2019-08-20)
PROC: 0KBP0ZZ Excision of Left Hip Muscle, Open Approach (ICD-10-PCS; principal; 2019-08-20)
PROC: 0BH17EZ Insertion of Endotracheal Airway into Trachea, Via Natural or Artificial Opening (ICD-10-PCS; principal; 2019-08-20)
PROC: 02H633Z Insertion of Infusion Device into Right Atrium, Percutaneous Approach (ICD-10-PCS; 2019-09-09)
DX: A41.9 Sepsis, unspecified organism (principal); U07.1 COVID-19; J96.01 Acute respiratory failure with hypoxia; J12.89 Other viral pneumonia; G92 Toxic encephalopathy; E43 Unspecified severe protein-calorie malnutrition; K56.609 Unspecified intestinal obstruction, unspecified as to partial versus complete obstruction; E87.0 Hyperosmolality and hypernatremia; G72.81 Critical illness myopathy; Z68.41 Body mass index [BMI] 40.0-44.9, adult; R65.20 Severe sepsis without septic shock; R74.0 Nonspecific elevation of levels of transaminase and lactic acid dehydrogenase [LDH]; L89.159 Pressure ulcer of sacral region, unspecified stage; E86.0 Dehydration; E66.01 Morbid (severe) obesity due to excess calories; E11.9 Type 2 diabetes mellitus without complications; G47.33 Obstructive sleep apnea (adult) (pediatric); F15.11 Other stimulant abuse, in remission; M54.9 Dorsalgia, unspecified; G89.29 Other chronic pain; L89.320 Pressure ulcer of left buttock, unstageable; L89.150 Pressure ulcer of sacral region, unstageable; I10 Essential (primary) hypertension; Z79.84 Long term (current) use of oral hypoglycemic drugs; Z79.899 Other long term (current) drug therapy; Z91.041 Radiographic dye allergy status; Z87.891 Personal history of nicotine dependence
CPT/HCPCS: 10078; 10779; 10879; 27000; 50101; 50386; 57091; 62110; 62900; 83006; 85076